=== PATIENT | female | born 1945 | race Caucasian/White ===

== ENCOUNTER 2021-09-25 10:52 | Inpatient (IN) | payer MEDICARE, SELFPAY ==
--- NOTE | ~2021-09-25 | XR_ITS ---
XR chest 2V 09/28/2021 12:56 Indication: Shortness of breath Procedure: 2 view chest Comparison: No prior studies for comparison. Findings: Bibasilar atelectasis. Small pleural effusions. Borderline heart size. Cholecystectomy clip s. No pneumothorax. Impression: 1: Bibasilar atelectasis. 2: Small pleural effusions. Reviewed, dictated and finalized at location [facility]. [place] MANAGER Impression: 1: Bibasilar atelectasis. 2: Small pleural effusions.
--- NOTE | ~2021-09-25 | CT_ITS ---
EXAMINATION: CT abdomen pelvis wo con DATE: 09/25/2021 12:34 INDICATION: Left lower quadrant abdominal pain for 4 days. History of cholecystectomy, hysterectomy a nd bladder surgery. TECHNIQUE: Computed tomography (CT) of the abdomen and pelvis was performed without intravenous contr ast. Automated exposure control and iterative reconstruction technique were employed. Exam dose: 212 .42 mGy-cm total exam DLP. COMPARISON: None. FINDINGS: There is mild discoid atelectasis or scarring at the lung bases, primarily on the left. Cardiomegaly. No pericardial or pleural effusion. Small sliding hiatal hernia. Status post cholecystectomy. No hepatic, splenic, pancreatic, and adrenal or solid renal space-occupy ing mass lesion is evident. Approximately 12 mm probable cyst of lower pole the right kidney. 2.7 mm nonobstructing upper pole ri ght renal calculus. There is left nephromegaly and mild left perinephric stranding and thickening of the anterior and pos terior pararenal fascia. No left urinary tract calculus or hydroureteronephrosis is detected. Conside r left pyelonephritis. There is atherosclerotic calcification of the abdominal aorta but no aneurysm. No intraperitoneal or retroperitoneal or pelvic mass lesion or adenopathy or ascites. Status post hysterectomy. The urinary bladder is nearly completely evacuated, unremarkable. Normal appendix. No bowel obstruction, bowel wall thickening, pneumatosis or intraperitoneal free air is detected. There is severe degenerative disc disease at L4-5. No suspicious osteolytic or osteoblastic lesions are noted. IMPRESSION: Left nephromegaly and mild left perinephric space stranding and prominence of the anteri or and posterior pararenal fascia, suggesting possible pyelonephritis No left urinary tract calculus or hydroureteronephrosis 2.7 mm upper pole nonobstructing right renal calculus and probable lower pole right renal approximate ly 12 mm cyst Status post cholecystectomy Status post hysterectomy Small sliding hiatal hernia Cardiomegaly Reviewed, dictated and finalized at [facility]. Reviewed, dictated and finalized at location [facility]. [employer] DIV[employer] PROJECT MANAGER IMPRESSION: Left nephromegaly and mild left perinephric space stranding and pr ominence of the anterior and posterior pararenal fascia, suggesting possible py elonephritis No left urinary tract calculus or hydroureteronephrosis 2.7 mm upper pole nonobstructing right renal calculus and probable lower pole r ight renal approximately 12 mm cyst Status post cholecystectomy Status post hysterectomy Small sliding hiatal hernia Cardiomegaly
[2021-09-25 11:00] VITALS: BP 140/61; PULSE 97; RESP 20; TEMP 36.5; O2SAT 96
--- NOTE | 2021-09-25 11:18 | ECG_ITS ---
Measurements Intervals [place] Rate: 87 P: 12 DE: 160 QRS: 43 QRSD: 72 T: -20 QT: 339 QTc: 409 Interpretive Statements SINUS RHYTHM VOLTAGE CRITERIA FOR LVH INFERIOR INFARCT, AGE INDETERMINATE BORDERLINE ST-T WAVE ABNORMALITY- ANTEROLATERAL LEADS ABNORMAL ECG Electronically Signed On 09-25-2021 12:31:31 METALWORKING SPECIALIST by Irineo Bettencourt D.O.
[2021-09-25 11:19] LABS: Glucose Point of Care 209 mg/dl (65-105)
--- NOTE | 2021-09-25 11:20 | ED.ABDPAIN ---
HPI - Abdominal Pain General Source: patient and family <Robert Quan MD - Last Filed: 09/25/21 13:13> Mode of arrival: ambulatory <Robert Quan MD - Last Filed: 09/25/21 13:13> History of Present Illness HPI narrative: this is a 76-year-old female that presents with close to 2 week history of not able to eat with weakness off and on abdominal pain currently there is sensation of nausea with no vomiting has been having diarrhea with no fever chills no cough or congestion no shortness of breath no chest pain. The patient has a history of diabetes and hypertension. <Robert Quan MD - Last Filed: 09/25/21 13:13> MD elicited complaint: abdominal pain <Robert Quan MD - Last Filed: 09/25/21 13:13> Onset (ago): week(s) <Robert Quan MD - Last Filed: 09/25/21 13:13> Pain Consistency: intermittent <Robert Quan MD - Last Filed: 09/25/21 13:13> Location: diffuse <Robert Quan MD - Last Filed: 09/25/21 13:13> Severity: mild <Robert Quan MD - Last Filed: 09/25/21 13:13> Quality: cramping <Robert Quan MD - Last Filed: 09/25/21 13:13> Migration to: no migration <Robert Quan MD - Last Filed: 09/25/21 13:13> Relieving factors: nothing <Robert Quan MD - Last Filed: 09/25/21 13:13> Associated symptoms: nausea and diarrhea <Robert Quan MD - Last Filed: 09/25/21 13:13> Related Data Home Medications: Home Medications Medication Instructions Recorded Confirmed ferrous sulfate 325 mg PO DAILY 09/25/21 09/25/21 glimepiride 1 mg PO DAILY 09/25/21 09/25/21 lisinopril 10 mg PO DAILY 09/25/21 09/25/21 simvastatin 40 mg PO DAILY 09/25/21 09/25/21 <Robert Quan MD - Last Filed: 09/25/21 13:13> Allergies/Adverse Reactions: Allergies Allergy/AdvReac Type Severity Reaction Status Date / Time acetaminophen AdvReac Difficulty Verified 09/25/21 12:01 Breathing aspirin AdvReac Difficulty Verified 09/25/21 12:01 Breathing codeine AdvReac Difficulty Verified 09/25/21 12:01 Breathing Corticosteroids AdvReac Swelling Verified 09/25/21 12:01 (Glucocorticoids) of Lip/Tongue/Throat hydrocodone AdvReac Difficulty Verified 09/25/21 12:01 Breathing morphine AdvReac Difficulty Verified 09/25/21 12:01 Swallowing Sulfa (Sulfonamide AdvReac Difficulty Verified 09/25/21 12:01 Antibiotics) Breathing <Robert Quan MD - Last Filed: 09/25/21 13:13> Review of Systems Review of Systems: All systems reviewed & are unremarkable except as noted in HPI and below <Robert Quan MD - Last Filed: 09/25/21 13:13> PMFSH Past Medical History Medical History: Medical History Diabetes mellitus <Robert Quan MD - Last Filed: 09/25/21 13:13> Social History Social History: Social History Smoking packs per day: 0.5 Smoking cigarettes per day: 10.0 Years smoked: 20 Smoking pack-years: 10.00 Smoking status: Light tobacco smoker Tobacco type: cigarettes Second hand tobacco smoke exposure: No Alcohol intake: never Substance use: never Substance use type: does not use Gender identity (if verbalized by the patient): Female Sexual Orientation (if Verbalized by the Patient): Straight or Heterosexual Spiritual care concerns: No <Robert Quan MD - Last Filed: 09/25/21 13:13> Exam Const: General: no acute distress and alert <Robert Quan MD - Last Filed: 09/25/21 13:13> Orientation/consciousness: patient oriented x3 <Robert Quan MD - Last Filed: 09/25/21 13:13> HENMT: Head: normal to inspection <Robert Quan MD - Last Filed: 09/25/21 13:13> Eyes: Conjunctivae: conjunctivae normal <Robert Quan MD - Last Filed: 09/25/21 13:13> Pupils: Equal, round and reactive
[2021-09-25 11:22] VITALS: BP 140/61; PULSE 97; RESP 20; TEMP 36.6; O2SAT 98
[2021-09-25 11:44] LABS: Hematocrit 34.2 % (35.0-42.0); Hemoglobin 11.5 g/dL (11.7-13.8); Mean Corpuscular HGB Conc 33.6 g/dL (32.0-36.0); Mean Corpuscular Hemoglobin 29.6 pg (27.0-31.0); Mean Corpuscular Volume 87.9 fL (78.0-102.0); Mean Platelet Volume 11.2 fl (9.2-11.8); Platelet Count Result 148 K/mm3 (150-420); Red Blood Count 3.89 M/mm3 (4.20-5.40); Red Cell Distribution Width 13.2 % (11.6-14.4); White Blood Count 14.6 K/mm3 (4.8-10.8)
[2021-09-25] MEDS: SODIUM CHLORIDE 0.9% IV 1,000 ML 999 ML IV CONT (11:54)
[2021-09-25] MEDS: PANTOPRAZOLE SODIUM IV 40 MG VIAL IV PUSH (11:55)
[2021-09-25] MEDS: ONDANSETRON INJ 4 MG/2 ML VIAL IV PUSH (11:55)
[2021-09-25 11:57] LABS: Partial Thromboplastin Time 31.7 SEC (23.90-30.70); Prothrombin Time 11.1 Seconds (9.50-12.10)
[2021-09-25 11:59] LABS: Alanine Aminotransferase 17 U/L (14-59); Albumin Level 2.9 g/dL (3.4-5.0); Alkaline Phosphatase 91 U/L (46-116); Anion Gap 17 mmol/L (8-16); Aspartate Amino Transferase 15 U/L (15-37); Bilirubin,Total 0.6 mg/dL (0.00-1.00); Blood Urea Nitrogen 51 mg/dL (7-18); Calcium 9.2 mg/dL (8.5-10.1); Carbon Dioxide 19 mmol/L (21-32); Chloride 90 mmol/L (98-108); Estimated Glomerular Filt Rate 11; Glucose 236 mg/dL (70-99); Osmolality Calculated 283 mOsm/kg (285-295); Sodium 126 mmol/L (136-145); Total Protein 7.8 g/dL (6.4-8.2)
[2021-09-25 12:00] LABS: SARS-CoV-2 Ag Negative (Negative)
[2021-09-25 12:04] LABS: Lactic Acid Reflex 2.6 mmol/L (0.4-2.0)
[2021-09-25 12:05] LABS: Band Neutrophils Percent 4 % (0-6); Basophils Percent Manual 0 % (0-1); Eosinophils Percent Manual 0 % (1-6); Lymphocytes Absolute Manual 0.29 K/mm3 (1.1-4.5); Lymphocytes Percent Manual 2 % (18-44); Metamyelocytes Percent 2 %; Monocytes Absolute Manual 0.43 K/mm3 (0.1-0.90); Monocytes Percent Manual 3 % (3-9); Neutrophils Absolute Manual 13.57 K/mm3 (1.7-7.2); Neutrophils Percent Manual 89 % (46-73); Total Cells Counted 100
[2021-09-25 12:06] LABS: Platelet Estimate Adequate (Adequate)
[2021-09-25 12:11] LABS: Add Urine Microscopic? YES; Appearance Urine Cloudy (Clear); Bilirubin Urine Negative (Negative); Blood Urine 2+ (Negative); Color Urine Light Yellow (Yellow); Glucose Urine UA Negative (Negative); Ketones Urine Negative (Negative); Leukocyte Esterase Ur 3+ (Negative); Nitrate Urine Negative (Negative); Protein Urine 2+ (Negative); Specific Grav Ur 1.025 (1.010-1.020); Urobilinogen Urine 0.2 mg/dL (0.2-1.0); pH Urine 5.5 (5.0-8.0)
[2021-09-25 12:14] LABS: RBC Urine 0-2 /hpf (0-2); WBC Urine 51-75 /hpf (0-3)
[2021-09-25 12:15] LABS: Bacteria Urine 2+ /hpf; Renal Epithelial Cells Urine Few /hpf; Squamous Epithelial Cell Urine Few /hpf (Few)
--- NOTE | 2021-09-25 13:47 | PC.NURSE ---
pt accepted per [facility] hospitalist.
[2021-09-25 13:52] VITALS: BP 131/61; PULSE 74; RESP 20; TEMP 36.9; O2SAT 94
--- NOTE | 2021-09-25 14:37 | PC.NURSE ---
Pt admitted to room 227 from the ER. Dx UTI and Kidney failure. Pt is A/O x3. Walks independently with steady gait. Pt on Consistant carb diet. 18G in RAC.
[2021-09-25 14:39] LABS: Reflex Lactic Acid Yes or No Add Lactic
[2021-09-25 14:48] VITALS: BMI 19.9
[2021-09-25 15:15] VITALS: BP 142/99; PULSE 90; RESP 18; TEMP 36.5; O2SAT 99
[2021-09-25] MEDS: SODIUM CHLORIDE 0.9% IV 1,000 ML 100 ML IV CONT (16:44)
[2021-09-25 16:49] LABS: Glucose Point of Care 213 mg/dl (65-105)
[2021-09-25] MEDS: MELATONIN 3 MG TABLET PO (21:09)
[2021-09-25 21:14] LABS: Glucose Point of Care 225 mg/dl (65-105)
[2021-09-25 23:40] VITALS: BP 129/55; PULSE 85; RESP 18; TEMP 37.7; O2SAT 93
[2021-09-26] MEDS: SODIUM CHLORIDE 0.9% IV 1,000 ML 100 ML IV CONT (02:45)
[2021-09-26 05:20] LABS: Hematocrit 29.2 % (35.0-42.0); Hemoglobin 9.7 g/dL (11.7-13.8); Mean Corpuscular HGB Conc 33.2 g/dL (32.0-36.0); Mean Corpuscular Hemoglobin 29.8 pg (27.0-31.0); Mean Corpuscular Volume 89.6 fL (78.0-102.0); Mean Platelet Volume 10.8 fl (9.2-11.8); Platelet Count Result 104 K/mm3 (150-420); Red Blood Count 3.26 M/mm3 (4.20-5.40); Red Cell Distribution Width 13.5 % (11.6-14.4); White Blood Count 10.6 K/mm3 (4.8-10.8)
[2021-09-26 05:29] LABS: Anion Gap 11 mmol/L (8-16); Blood Urea Nitrogen 51 mg/dL (7-18); Calcium 8.2 mg/dL (8.5-10.1); Carbon Dioxide 21 mmol/L (21-32); Chloride 99 mmol/L (98-108); Estimated Glomerular Filt Rate 15; Glucose 173 mg/dL (70-99); Osmolality Calculated 289 mOsm/kg (285-295); Potassium 3.9 mmol/L (3.5-5.1); Sodium 131 mmol/L (136-145)
[2021-09-26 05:36] LABS: Band Neutrophils Percent 0 % (0-6); Basophils Percent Manual 0 % (0-1); Eosinophils Percent Manual 0 % (1-6); Lymphocytes Absolute Manual 0.63 K/mm3 (1.1-4.5); Lymphocytes Percent Manual 6 % (18-44); Monocytes Absolute Manual 0.84 K/mm3 (0.1-0.90); Monocytes Percent Manual 8 % (3-9); Neutrophils Absolute Manual 9.11 K/mm3 (1.7-7.2); Neutrophils Percent Manual 86 % (46-73); Platelet Estimate Adequate (Adequate)
--- NOTE | 2021-09-26 07:40 | PM.IMHP ---
H&P: HPI History of Present Illness Date/Time: 09/26/21 07:40This is a 76-year-old female the presents to the emergency room complaining of nausea vomiting and diarrhea for the past few weeks. Patient states that she just has been feeling weaker not able to hold anything down. Patient informs me she has had a history of a hysterectomy, cholecystectomy, GERD, and a hernia repair. On admission White Blood Count 14.8 hemoglobin 11.5 hematocrit was 34.2 platelets at 148, patient sodium was 126 BUN 51 creatinine 3.81 Patient states that she has been diabetic for a while but has never had any kidney disease. Patient states that over the past week she has not been able to urinate as much. At this time patient still having some nausea with difficulty urinating. According to Ms. Lazo she has a lot of allergies and her blood pressure medicine has been making her cough and have a dry throat. Patient informs me she has not been able to tell her doctor yet. Ms. Elizabeth informed me she has not been to her primary care provider in almost a year she just called to have her medication refilled. Patient is a very poor historian as her regulation of her memory of events or illnesses are scattered or she does not remember. Patient is wanting to follow-up when she is discharged with Dr. Becerra as she is staying with her son and will be in this area. Chief Complaint: Nausea vomiting and diarrhea Review of Systems Review of Systems: Nausea, vomiting, diarrhea, inability to urinate All systems reviewed & are unremarkable except as noted in HPI and below PMFSH Past Medical History Medical History Diabetes mellitus Social History Social History Smoking packs per day: 0.5 Smoking cigarettes per day: 10.0 Years smoked: 20 Smoking pack-years: 10.00 Smoking status: Light tobacco smoker Tobacco type: cigarettes Second hand tobacco smoke exposure: No Alcohol intake: never Substance use: never Substance use type: does not use Gender identity (if verbalized by the patient): Female Sexual Orientation (if Verbalized by the Patient): Straight or Heterosexual Spiritual care concerns: No Meds Home Medications and Allergies Home Medications Medication Instructions Recorded Confirmed Type ferrous sulfate 325 mg PO DAILY 09/25/21 09/25/21 History glimepiride 1 mg PO DAILY 09/25/21 09/25/21 History lisinopril 10 mg PO DAILY 09/25/21 09/25/21 History simvastatin 40 mg PO DAILY 09/25/21 09/25/21 History Allergies Allergy/AdvReac Type Severity Reaction Status Date / Time acetaminophen AdvReac Difficulty Verified 09/25/21 12:01 Breathing aspirin AdvReac Difficulty Verified 09/25/21 12:01 Breathing codeine AdvReac Difficulty Verified 09/25/21 12:01 Breathing Corticosteroids AdvReac Swelling Verified 09/25/21 12:01 (Glucocorticoids) of Lip/Tongue/Throat hydrocodone AdvReac Difficulty Verified 09/25/21 12:01 Breathing morphine AdvReac Difficulty Verified 09/25/21 12:01 Swallowing Sulfa (Sulfonamide AdvReac Difficulty Verified 09/25/21 12:01 Antibiotics) Breathing Vital Signs Vital Signs - 24 hr 09/25/21 11:00 09/25/21 11:22 09/25/21 13:52 Temperature 97.7 F 97.8 F 98.4 F Pulse Rate 97 97 74 Respiratory Rate 20 20 20 Blood Pressure 140/61 140/61 131/61 Pulse Oximetry 96 98 94 09/25/21 15:15 09/25/21 23:40 Temperature 97.7 F 99.9 F H Pulse Rate 90 85 Respiratory Rate 18 18 Blood Pressure 142/99 H 129/55 L Pulse Oximetry 99 93 Exam Narrative: GENERAL:Well-appearing, Frail and in no acute distress. HEAD:Normocephalic, EYES: PERRLA ENT: Nares clear, no rhinorrhea. Mucous membranes moist. CHEST: Clear to auscultation. No respiratory distress. HEART: Regular rate and rhythm. Normal peripheral pulses. ABDOMEN: Soft, nontender, nond
[2021-09-26 08:00] VITALS: BP 119/47; PULSE 94; RESP 16; TEMP 36.7; O2SAT 94
[2021-09-26 08:04] LABS: Glucose Point of Care 148 mg/dl (65-105)
[2021-09-26 08:26] LABS: Lactic Acid Reflex 0.8 mmol/L (0.4-2.0)
[2021-09-26] MEDS: PANTOPRAZOLE SODIUM IV 40 MG VIAL IV PUSH (09:00)
[2021-09-26] MEDS: ENOXAPARIN 30 MG/0.3 ML SYRINGE SUB-Q (09:00)
[2021-09-26] MEDS: amLODIPine BESYLATE 5 MG TABLET 10 MG PO (09:00)
[2021-09-26 11:53] LABS: Glucose Point of Care 140 mg/dl (65-105)
[2021-09-26] MEDS: SODIUM CHLORIDE 0.9% IV 1,000 ML 75 ML IV CONT (12:05)
--- NOTE | 2021-09-26 13:50 | PC.NURSE ---
Patient voided 200 ml in commode. Bladder scan performed post voided, 27ml noted.
[2021-09-26 16:40] VITALS: BP 132/58; PULSE 75; RESP 18; TEMP 37.1; O2SAT 95
[2021-09-26] MEDS: MELATONIN 3 MG TABLET PO (21:16)
[2021-09-26 21:20] LABS: Glucose Point of Care 172 mg/dl (65-105)
[2021-09-27] VITALS: BP 125/52; PULSE 72; RESP 16; TEMP 36.8; O2SAT 96
[2021-09-27] MEDS: SODIUM CHLORIDE 0.9% IV 1,000 ML 75 ML IV CONT ×2 (00:14→14:58)
[2021-09-27 05:39] LABS: Hematocrit 26.5 % (35.0-42.0); Mean Corpuscular Hemoglobin 30.2 pg (27.0-31.0); Mean Corpuscular Volume 88.9 fL (78.0-102.0); Mean Platelet Volume 10.8 fl (9.2-11.8); Platelet Count Result 101 K/mm3 (150-420); Red Blood Count 2.98 M/mm3 (4.20-5.40); Red Cell Distribution Width 13.9 % (11.6-14.4)
[2021-09-27 05:42] LABS: Anion Gap 13 mmol/L (8-16); Blood Urea Nitrogen 50 mg/dL (7-18); Carbon Dioxide 17 mmol/L (21-32); Chloride 100 mmol/L (98-108); Estimated Glomerular Filt Rate 19; Glucose 141 mg/dL (70-99); Osmolality Calculated 285 mOsm/kg (285-295); Potassium 3.6 mmol/L (3.5-5.1); Sodium 130 mmol/L (136-145)
[2021-09-27 05:44] LABS: Hemoglobin A1C 8.1 % (<5.7)
[2021-09-27 07:28] LABS: Glucose Point of Care 132 mg/dl (65-105)
[2021-09-27 08:00] VITALS: BP 148/60; PULSE 65; RESP 16; TEMP 36.8; O2SAT 93
[2021-09-27] MEDS: SIMVASTATIN 10 MG TABLET 40 MG PO (08:04)
[2021-09-27] MEDS: ENOXAPARIN 30 MG/0.3 ML SYRINGE SUB-Q (08:06)
[2021-09-27] MEDS: PANTOPRAZOLE SODIUM IV 40 MG VIAL IV PUSH (08:06)
[2021-09-27] MEDS: amLODIPine BESYLATE 5 MG TABLET 10 MG PO (08:06)
[2021-09-27] MEDS: DIPHENOXYLATE/ATROPINE (*CRX) 2.5 MG TABLET 1 TABLET PO (10:36)
--- NOTE | 2021-09-27 10:36 | PM.IMPN ---
Progress Note: A&P Assessment and Plan (1) Dehydration: Code(s): E86.0 - Dehydration Status: Acute Assessment and Plan: -- IVF -- Monitor Intake and output -- Monitor labs --- Improved. (2) Acute pyelonephritis: Code(s): N10 - Acute pyelonephritis Status: Acute Assessment and Plan: -- IVf changed to 75 ml/hr -- IV Antibiotics Rocephin -- Awaiting Cultures -- Monitor Intake and output -- Plenty of fluids avoid caffeine (3) Acute kidney failure: Qualifiers: Acute renal failure type: unspecified Qualified Code(s): N17.9 - Acute kidney failure, unspecified Code(s): N17.9 - Acute kidney failure, unspecified Status: Acute Assessment and Plan: --Creatinine3.39...2.99...2.51 --IV fluids changed to 75 mls --Monitor intake and output improving -- bladder scan / Virk catheter --Avoid any nephrotoxic drugs -- Diarrhea has continued started on Lomotil today -- More than likely Pre renal at this time (4) Diabetes mellitus: Qualifiers: Diabetes mellitus type: type 2 Diabetes mellitus retirement insulin use: unspecified intermediate accountant insulin use status Diabetes mellitus complication status: with other specified complication Qualified Code(s): E11.69 - Type 2 diabetes mellitus with other specified complication Code(s): E11.9 - Type 2 diabetes mellitus without complications Status: Acute Assessment and Plan: --Monitor blood sugars --Hold oral antiglycemic's --Sliding scale insulin --Monitor hemoglobin A1c 8.1 --Carbohydrate diet for diabete --TSH -- BNP (5) Hypertension: Qualifiers: Hypertension type: unspecified Qualified Code(s): I10 - Essential (primary) hypertension Code(s): I10 - Essential (primary) hypertension Status: Acute Assessment and Plan: --Monitor blood pressure every shift --Take home blood pressure medication --- Changed to Norvasc discontinued the Lisinopril Subjective Date/time seen: 09/27/21 10:36 Ms. Cordero continues to improve although she is in renal failure. Yesterday patient's lisinopril was discontinued as could be causing some of her renal issues patient also was having coughing since she started the medication she did not inform anyone. Patient is up in recliner chair states she is feeling a lot better decreased pain or palpitations to her kidneys. Patient is able to eat and drink although she still having diarrhea we will start some Lomotil today culture of stool still has not been obtained. Patient has remained afebrile no nausea no vomiting we will continue IV fluids at a low dose as well as we will obtain a kidney ultrasound if unable this weekend we may obtain 1 during outpatient visit. Review of Systems Review of Systems: Diarrhea All systems reviewed & are unremarkable except as noted in HPI and below Exam Narrative: GENERAL:Well-appearing, Frail and in no acute distress. HEAD:Normocephalic, EYES: PERRLA ENT: Nares clear, no rhinorrhea. Mucous membranes moist. CHEST: Clear to auscultation. No respiratory distress. HEART: Regular rate and rhythm. Normal peripheral pulses. ABDOMEN: Soft, nontender, nondistended, normal active bowel sounds. Flank back pain right side decreased oaub EXTREMITIES: decreased range of motion. No edema. SKIN: Warm, dry, no rash. NEURO: No focal deficits. Alert and oriented x3. Objective Data Vital Signs Vital Signs: Vital Signs - 24 hr 09/26/21 16:40 09/27/21 00:00 09/27/21 08:00 Temperature 98.8 F 98.2 F 98.2 F Pulse Rate 75 72 65 Respiratory Rate 18 16 16 Blood Pressure 132/58 L 125/52 L 148/60 H Pulse Oximetry 95 96 93 Intake/Output Intake/Output: Intake & Output 09/24/21 09/25/21 09/26/21 09/27/21 23:59 23:59 23:59 23:59 Intake Total 1175 3390.000 911.25 Output Total 25 1500 400 Balance 1150 1890.000 511.25 Meds/Results Medications: Active Medications Generic Name Dose Ro
[2021-09-27 10:49] LABS: NT Pro B Type Natriuretic Pept 8141 pg/mL (0-450)
[2021-09-27 10:57] LABS: Thyroid Stimulating Hormone Reflex 1.04 u/IU/mL (0.36-3.74)
[2021-09-27 11:37] LABS: Glucose Point of Care 205 mg/dl (65-105)
[2021-09-27] MEDS: FUROSEMIDE INJ 20 MG/2 ML VIAL IV PUSH (12:56)
[2021-09-27 15:49] VITALS: BP 129/55; PULSE 73; RESP 18; TEMP 37.3; O2SAT 97
[2021-09-27 16:56] LABS: Glucose Point of Care 192 mg/dl (65-105)
[2021-09-27 20:45] LABS: Glucose Point of Care 180 mg/dl (65-105)
[2021-09-28] VITALS: BP 137/57; PULSE 75; RESP 14; TEMP 37.2; O2SAT 99
[2021-09-28] MEDS: SODIUM CHLORIDE 0.9% IV 1,000 ML 75 ML IV CONT (03:27)
[2021-09-28 07:35] LABS: Glucose Point of Care 173 mg/dl (65-105)
[2021-09-28 08:00] VITALS: BP 137/53; PULSE 82; RESP 18; TEMP 36.7; O2SAT 95
[2021-09-28] MEDS: PANTOPRAZOLE SODIUM IV 40 MG VIAL IV PUSH (08:12)
[2021-09-28] MEDS: amLODIPine BESYLATE 5 MG TABLET 10 MG PO (08:14)
[2021-09-28] MEDS: SIMVASTATIN 10 MG TABLET 40 MG PO (08:14)
[2021-09-28 09:54] LABS: Hematocrit 28.6 % (35.0-42.0); Hemoglobin 9.6 g/dL (11.7-13.8); Mean Corpuscular HGB Conc 33.6 g/dL (32.0-36.0); Mean Corpuscular Hemoglobin 29.9 pg (27.0-31.0); Mean Corpuscular Volume 89.1 fL (78.0-102.0); Mean Platelet Volume 11.1 fl (9.2-11.8); Platelet Count Result 150 K/mm3 (150-420); Red Blood Count 3.21 M/mm3 (4.20-5.40); Red Cell Distribution Width 14.2 % (11.6-14.4); White Blood Count 12.8 K/mm3 (4.8-10.8)
[2021-09-28 10:05] LABS: Anion Gap 16 mmol/L (8-16); Blood Urea Nitrogen 48 mg/dL (7-18); Calcium 7.8 mg/dL (8.5-10.1); Carbon Dioxide 15 mmol/L (21-32); Chloride 96 mmol/L (98-108); Estimated Glomerular Filt Rate 19; Glucose 213 mg/dL (70-99); Osmolality Calculated 282 mOsm/kg (285-295); Potassium 3.1 mmol/L (3.5-5.1); Sodium 127 mmol/L (136-145)
[2021-09-28 11:34] LABS: Glucose Point of Care 186 mg/dl (65-105)
--- NOTE | 2021-09-28 11:51 | PM.IMPN ---
Progress Note: A&P Assessment and Plan (1) Dehydration: Code(s): E86.0 - Dehydration Status: Acute Assessment and Plan: -- IVF -- Monitor Intake and output -- Monitor labs --- Improved. (2) Acute pyelonephritis: Code(s): N10 - Acute pyelonephritis Status: Acute Assessment and Plan: -- IVf changed to 75 ml/hr -- IV Antibiotics Rocephin -- Awaiting Cultures -- Monitor Intake and output -- Plenty of fluids avoid caffeine (3) Acute kidney failure: Qualifiers: Acute renal failure type: unspecified Qualified Code(s): N17.9 - Acute kidney failure, unspecified Code(s): N17.9 - Acute kidney failure, unspecified Status: Acute Assessment and Plan: --Creatinine3.39...2.99...2.51 --IV fluids changed to 75 mls --Monitor intake and output improving -- bladder scan / Virk catheter --Avoid any nephrotoxic drugs -- Diarrhea has continued started on Lomotil today -- More than likely Pre renal at this time (4) Diabetes mellitus: Qualifiers: Diabetes mellitus type: type 2 Diabetes mellitus shelter insulin use: unspecified shelter insulin use status Diabetes mellitus complication status: with other specified complication Qualified Code(s): E11.69 - Type 2 diabetes mellitus with other specified complication Code(s): E11.9 - Type 2 diabetes mellitus without complications Status: Acute Assessment and Plan: --Monitor blood sugars --Hold oral antiglycemic's --Sliding scale insulin --Monitor hemoglobin A1c 8.1 --Carbohydrate diet for diabete --TSH -- [id number] (5) Hypertension: Qualifiers: Hypertension type: unspecified Qualified Code(s): I10 - Essential (primary) hypertension Code(s): I10 - Essential (primary) hypertension Status: Acute Assessment and Plan: --Monitor blood pressure every shift --Take home blood pressure medication --- Changed to Norvasc discontinued the Lisinopril (6) Acute hypokalemia: Code(s): E87.6 - Hypokalemia Status: Acute Assessment and Plan: 3.1 Patient to be placed on oral potassium BID Cardiac Telemetery monitor for s/s of hypokalemia Monitor labs daily (7) Hyponatremia: Code(s): E87.1 - Hypo-osmolality and hyponatremia Status: Acute Assessment and Plan: 127 Discontinue IVF Monitor intake and output Daily Weights monitor daily labs (8) Shortness of breath: Code(s): R06.02 - Shortness of breath Status: Acute Assessment and Plan: Chest x-ray stat Albuterol inhaler first dose now then. 4 times daily I-S every 2 hours while awake Monitor for any signs or symptoms of shortness of breath O2 as needed Check pulse oximetry Subjective Date/time seen: 09/28/21 11:51 This is a 76-year-old female kidney function continues to slowly improve currently creatinine is 2.44 GFR is 19. IV fluids have been discontinued patient is hyponatremic at 127 patient is hypokalemic at 3.1 today I am going to add oral potassium twice daily. Patient also received albuterol inhaler due to she complains of shortness of breath although lungs are clear at this time. Patient is feeling better eating and drinking stating that she is urinating a lot better and her back does not hurt today. Patient very anxious to go home informed her we would discuss discharge possibly tomorrow. Review of Systems Review of Systems: Urinary Retention All systems reviewed & are unremarkable except as noted in HPI and below Exam Narrative: GENERAL:Well-appearing, Frail and in no acute distress. HEAD:Normocephalic EYES: PERRLA ENT: Nares clear, no rhinorrhea. Mucous membranes moist. CHEST: Clear to auscultation. No respiratory distress. HEART: Regular rate and rhythm. Normal peripheral pulses. ABDOMEN: Soft, nontender, nondistended, normal active bowel sounds. EXTREMITIES: decreased range of motion. No yair
[2021-09-28] MEDS: ALBUTEROL SULFATE (*SP) INHALER 2 PUFF INHALATION (12:31)
[2021-09-28 15:16] VITALS: BP 180/63; PULSE 81; RESP 16; TEMP 37.1; O2SAT 94
[2021-09-28 15:29] VITALS: BP 137/51
[2021-09-28] MEDS: POTASSIUM CHLORIDE 20 MEQ TABLET PO (16:57)
[2021-09-28 20:44] LABS: Glucose Point of Care 203 mg/dl (65-105)
[2021-09-28 20:47] LABS: Glucose Point of Care 185 mg/dl (65-105)
[2021-09-29] VITALS: BP 136/82; PULSE 92; RESP 20; TEMP 35.8; O2SAT 98
[2021-09-29 05:15] LABS: Mean Corpuscular HGB Conc 34.6 g/dL (32.0-36.0); Mean Corpuscular Hemoglobin 30.4 pg (27.0-31.0); Mean Corpuscular Volume 87.8 fL (78.0-102.0); Mean Platelet Volume 10.9 fl (9.2-11.8); Platelet Count Result 144 K/mm3 (150-420); Red Blood Count 2.96 M/mm3 (4.20-5.40); Red Cell Distribution Width 14.1 % (11.6-14.4); White Blood Count 12.7 K/mm3 (4.8-10.8)
[2021-09-29 05:27] LABS: Anion Gap 14 mmol/L (8-16); Blood Urea Nitrogen 44 mg/dL (7-18); Calcium 7.7 mg/dL (8.5-10.1); Carbon Dioxide 16 mmol/L (21-32); Chloride 101 mmol/L (98-108); Estimated Glomerular Filt Rate 21; Glucose 164 mg/dL (70-99); Osmolality Calculated 287 mOsm/kg (285-295); Potassium 3.8 mmol/L (3.5-5.1); Sodium 131 mmol/L (136-145)
[2021-09-29 07:56] LABS: Glucose Point of Care 145 mg/dl (65-105)
[2021-09-29 08:00] VITALS: BP 141/58; PULSE 82; RESP 20; TEMP 37.1; O2SAT 96
--- NOTE | 2021-09-29 08:34 | PC.NURSE ---
Attempted to make f/u appointment for patient with Dr Dorado, patient states has new patient paperwork, not returned at this time, advised that they cannot make appointment for patient until Dr Dorado reviews the returned packet and accepts her as a patient, hospitalist given information
[2021-09-29] MEDS: POTASSIUM CHLORIDE 20 MEQ TABLET PO (08:39)
[2021-09-29] MEDS: SIMVASTATIN 10 MG TABLET 40 MG PO (08:39)
[2021-09-29] MEDS: PANTOPRAZOLE SODIUM IV 40 MG VIAL IV PUSH (08:39)
[2021-09-29] MEDS: amLODIPine BESYLATE 5 MG TABLET 10 MG PO (08:39)
--- NOTE | 2021-09-29 10:30 | PC.NURSE ---
Patient dressed self and gathered belongings. Discharge instructions reviewed with patient and family. Patient taken off floor per wheelchair, assisted into private vehicle by son.
--- NOTE | 2021-09-29 10:31 | PM.DS ---
DS: Admitting Diagnosis Discharge Date 09/29/2021 Admitting Diagnosis Acute kidney failure, pyelonephritis, nausea vomiting and diarrhea DS: Discharge Diagnosis Discharge Diagnosis (1) Hypertension: Qualifiers: Hypertension type: unspecified Qualified Code(s): I10 - Essential (primary) hypertension Code(s): I10 - Essential (primary) hypertension Status: Acute Assessment and Plan: Patient sent home on oral Norvasc (lisinopril discontinued) (2) Acute pyelonephritis: Code(s): N10 - Acute pyelonephritis Status: Acute Assessment and Plan: Patient is currently urinating adequate amount of urine home antibiotic will be Levaquin 250 mg p.o. every 48 hours patient to have labs redrawn by primary care doctor (3) Acute kidney failure: Qualifiers: Acute renal failure type: unspecified Qualified Code(s): N17.9 - Acute kidney failure, unspecified Code(s): N17.9 - Acute kidney failure, unspecified Status: Acute Assessment and Plan: Patient's creatinine continuing to improve very slowly urinated adequate amount of urine avoidance of all nephrotoxic medications clear instructions given and explained to patient regarding follow-up Creatinine currently 2.3 (4) Diabetes mellitus: Qualifiers: Diabetes mellitus type: type 2 Diabetes mellitus group home insulin use: unspecified group home insulin use status Diabetes mellitus complication status: with other specified complication Qualified Code(s): E11.69 - Type 2 diabetes mellitus with other specified complication Code(s): E11.9 - Type 2 diabetes mellitus without complications Status: Acute Assessment and Plan: Patient to continue to monitor her blood sugars as well as should go back on her oral antiglycemic's (5) Acute hypokalemia: Code(s): E87.6 - Hypokalemia Status: Acute Assessment and Plan: 3.1 Patient to be placed on oral potassium BID Cardiac Telemetery monitor for s/s of hypokalemia Monitor labs daily Patient's potassium currently 3.8 she is to follow-up with primary care provider (6) Shortness of breath: Code(s): R06.02 - Shortness of breath Status: Acute Assessment and Plan: Chest x-ray no pneumonia noted Albuterol inhaler first dose now then. 4 times daily I-S every 2 hours while awake Monitor for any signs or symptoms of shortness of breath O2 as needed Check pulse oximetry remained stable Patient will go home on oral Levaquin every 48 hours shortness of breath resolved DS: Summary Hospital Course Reason for hospitalization: Acute pyelonephritis, dehydration, acute kidney injury nausea vomiting and diarrhea Hospital Course: Mrs Lazo intial labs on admission white blood count 14.6, hemoglobin 11.5, platelets 148, sodium 126, BUN 51, creatinine 3.81. Urine was positive for leukois extremities 3+ mucus CARA cloudy urine. Patient was initially admitted and started with some IV fluids, IV Rocephin stopped oral antiglycemic's and was placed on a sliding scale. Patient's lisinopril was discontinued as well as she received some IV Lasix. Patient was on strict intake and output and was put on a diabetic diet. Patient's kidney function has continued to slowly improved and urine is now clear currently urinate and over 2000 mL in 24-hour with no further nausea vomiting and/or diarrhea noted patient is eating and drinking without any difficulties has been up to the shower able to ambulate she will need to follow-up to have her kidney functions continually followed up on as she may need to be evaluated by a urologist or manager payroll if deemed necessary by her primary care provider. Patient should have labs drawn in approximately 1 week discussion had with patient's family patient's labs currently WBC is 12.7, hemoglobin 9.0, [place] 26, platelets 144, BUN is 44, creatinine is 2.30, sodium is 131, potassium is 3.8. Patient states that
--- NOTE | 2021-10-01 11:39 | PC.NURSE ---
Unable to contact for discharge call back.
--- NOTE | 2021-10-01 11:45 | PC.NURSE ---
Pt returned discharge call back. Pt states she received and understood her discharge instructions. Pt also states everything was fine .
== END 2021-09-29 10:30 | disposition home or self-care (01) | DRG 690 ==
LOC: CHSED 13:12 → CHS2ND 14:02
PROVIDERS: Nurse Practitioner Family; Admitting Provider Internal Medicine; Emergency Provider Emergency Medicine; PCP Internal Medicine; Visit Provider Internal Medicine
DX: N10 Acute pyelonephritis (principal); E87.1 Hypo-osmolality and hyponatremia; N17.9 Acute kidney failure, unspecified; E86.0 Dehydration; Z72.0 Tobacco use; Z20.822 Contact with and (suspected) exposure to COVID-19; E11.9 Type 2 diabetes mellitus without complications; E87.6 Hypokalemia; I10 Essential (primary) hypertension; K21.9 Gastro-esophageal reflux disease without esophagitis; R19.7 Diarrhea, unspecified; F17.210 Nicotine dependence, cigarettes, uncomplicated; Z90.49 Acquired absence of other specified parts of digestive tract; Z79.84 Long term (current) use of oral hypoglycemic drugs
CPT/HCPCS: 36415; 71046; 74176; 80048; 80053; 81001; 82948; 83036; 83605; 83880; 84443; 85025; 85027; 85610; 85730; 87040; 87426; 93005; 96361; 96365; 96375; 99285; A9270; C9113; C9803; J0696; J1650; J1940; J2405; J7030

== ENCOUNTER 2021-11-04 12:34 | Outpatient (CLI) | payer MEDICARE, SELFPAY ==
--- NOTE | ~2021-11-04 | US_ITS ---
EXAMINATION: US carotid duplex BI DATE: 11/04/2021 12:56 INDICATION: Abnormal carotid exam. TECHNIQUE: Grayscale, color Doppler, and pulsed Doppler images of the cervical carotid arteries were obtained. The degree of vessel stenosis is placed in one of the following categories: normal, <50%, 5 0-69%, >=70% but less than near-occlusion, near-occlusion, or total occlusion. Note that percent sten osis relative to normal distal artery lumen diameter is indirectly measured from velocity measurement s as described by Butch, et al. Radiology 2003; 229:340-346. COMPARISON: None. FINDINGS: RIGHT: The right common carotid artery (CCA) peak systolic velocity (PSV) is 85 cm/s. The right internal car otid artery (ICA) PSV is 78 cm/s. The right ICA end-diastolic velocity (EDV) is 19 cm/s. The right IC A/CCA PSV ratio is 0.9. Grayscale and color Doppler images yield an estimate of <50% diameter reducti on from plaque in the ICA. There is antegrade flow in the right vertebral artery. LEFT: The left CCA PSV is 87 cm/s. The left ICA PSV is 90 cm/s. The left ICA EDV is 19 cm/s. The left ICA/C CA PSV ratio is 1.0. Grayscale and color Doppler images yield an estimate of <50% diameter reduction from plaque in the ICA. There is antegrade flow in the left vertebral artery. IMPRESSION: 1. <50% stenosis in the right internal carotid artery. 2. <50% stenosis in the left internal carotid artery. Reviewed, dictated and finalized at location A.
== END 2021-11-04 12:35 | disposition home or self-care (01) ==
LOC: CHSIMG 12:35
PROVIDERS: PCP Internal Medicine; Visit Provider Nurse Practitioner Family
DX: R93.1 Abnormal findings on diagnostic imaging of heart and coronary circulation (principal); R09.89 Other specified symptoms and signs involving the circulatory and respiratory systems; I10 Essential (primary) hypertension; R55 Syncope and collapse; I25.10 Atherosclerotic heart disease of native coronary artery without angina pectoris; R42 Dizziness and giddiness
CPT/HCPCS: 93880

== ENCOUNTER 2021-12-25 13:31 | Outpatient (CLI) | payer MEDICARE, SELFPAY ==
--- NOTE | ~2021-12-25 | US_ITS ---
US renal BI 12/25/2021 14:05 Procedure: Realtime transabdominal ultrasound of the kidneys and bladder. Indication: Chronic kidney disease stage III a Comparison: CT dated 09/25/2021 Findings: Renal echotexture is normal bilaterally without hydronephrosis, contour deforming mass or r enal calculus. There are right renal cysts, largest measuring 1.3 cm. The right kidney measures 7.6 c m and left kidney measures 8.5 cm. Bladder within normal limits. Impression: 1: Right renal cysts, largest measuring 1.3 cm. Reviewed, dictated and finalized at location B. Impression: 1: Right renal cysts, largest measuring 1.3 cm.
== END 2021-12-25 13:32 | disposition home or self-care (01) ==
LOC: CHSIMG 13:32
PROVIDERS: PCP Internal Medicine; Visit Provider Internal Medicine Nephrology
DX: N17.8 Other acute kidney failure (principal); N18.31 Chronic kidney disease, stage 3a
CPT/HCPCS: 76775

== ENCOUNTER 2023-02-17 09:05 | Outpatient (CLI) | payer MEDICARE, SELFPAY ==
--- NOTE | ~2023-02-17 | MM_ITS ---
EXAMINATION: MM screening thuy BI w verna HISTORY: Screening mammogram TECHNIQUE: Craniocaudal and mediolateral oblique 3-D tomosynthesis images were obtained and synthetic 2-D images were generated. CAD analysis was submitted and interpreted. COMPARISON: No prior mammogram is available for comparison at this institution. BREAST PARENCHYMAL COMPOSITION: There are scattered areas of fibroglandular density. FINDINGS: There is no evidence of suspicious mass, calcification, or architectural distortion to sugg est malignancy in either breast. There has been no suspicious interval change. IMPRESSION: 1. No mammographic evidence of malignancy. 2. Recommend routine screening mammography in one year. BI-RADS Category 1: Negative Reviewed, dictated and finalized at location A.
--- NOTE | ~2023-02-17 | DEXA_ITS ---
Bone Density Report Name: ADRIAN VERA Age: 77 Sex: Female Ethnicity: White Date of : 1945 Indication: postmenopausal; screening for osteoporosis; height loss; hysterectomy; Referring Provider: Eugene Dorado Study: Bone densitometry was performed. Exam Date: February 17, 2023 Accession number: [id number] Bone Density: Region BMD T-score Z-score Classification AP Spine(L1-L4) 0.671 -3.4 -0.8 Osteoporosis Femoral Neck (Left) 0.544 -2.7 -0.5 Osteoporosis Total Hip (Left) 0.674 -2.2 -0.2 Osteopenia Femoral Neck (Right) 0.562 -2.6 -0.4 Osteoporosis Total Hip (Right) 0.703 -2.0 0.0 Osteopenia Femoral Neck Mean 0.553 -2.7 -0.4 Osteoporosis Total Hip Mean 0.688 -2.1 -0.1 Osteopenia World Health Organization criteria for BMD impression classify patients as: Normal (T-score at or above -1.0), Osteopenia (T-score between -1.0 and -2.5), or Osteoporosis (T-score at or below -2.5). 10-year Fracture Risk: FRAX not reported because: Some T-score for Spine Total or Hip Total or Femoral Neck at or below -2.5 Clinical Information Provided by Patient: Has the following medical conditions: Hysterectomy Patient maximum height was 57 Menopause Age: 49 No regular weight bearing exercise Onset of menses at age 11 Number of children 3 Impression: The patient has osteoporosis, based on the Total Spine T-score. Discussion: INCREASED RISK OF FRACTURE. BONE DENSITY IS UNDESIRABLY LOW AT ONE OR MORE SKELETAL SITES, CONSISTENT WITH POSTMENOPAUSAL OSTEOPOROSIS. This patient's lowest T-score meets the World Health Organization's (WHO) criteria for osteoporosis at one or more sites (T-score -2.5 or below). In untreated patients, the risk of osteoporotic fracture increases approximately two-fold for each 1.0 SD decrease in T-score. Low bone density is not the only risk factor for fracture; also consider factors such as patient's age, frailty or poor health, risk of falling, risk of injury, previous osteoporotic fracture, family history of osteoporosis, cigarette smoking, low body weight, etc. Not everyone with low bone mineral density has osteoporosis; osteomalacia and other metabolic bone disorders should also be considered. Patients who have osteoporosis should be evaluated for specific diseases and conditions (secondary causes) that may cause or contribute to bone loss. The [place] [employer] Endocrinologists (AACE) and National Osteoporosis Foundation (NOF) recommend pharmacologic intervention for all postmenopausal women whose T-score is in this range. The patient should follow a healthful lifestyle (good nutrition with adequate calcium and vitamin D, and appropriate weight-bearing exercise). Follow-Up: Consider a repeat BMD and Vertebral Fracture Assessment (VFA) exam in 2 years or
== END 2023-02-17 09:06 | disposition home or self-care (01) ==
LOC: CHSIMG 09:06
PROVIDERS: PCP Internal Medicine; Visit Provider Internal Medicine
DX: Z12.31 Encounter for screening mammogram for malignant neoplasm of breast (principal); Z78.0 Asymptomatic menopausal state; M85.89 Other specified disorders of bone density and structure, multiple sites; M81.0 Age-related osteoporosis without current pathological fracture
CPT/HCPCS: 77063; 77067; 77080

== ENCOUNTER 2023-12-28 12:02 | Outpatient (CLI) | payer MEDICARE, SELFPAY ==
--- NOTE | ~2023-12-28 | XR_ITS ---
XR lumbar spine 2-3V DATE: 12/28/2023 12:49 INDICATION: Left leg numbness, pain TECHNIQUE: AP, lateral, cone-down lateral lumbosacral views COMPARISON: None FINDINGS: There is osteopenia. There is minimal thoracolumbar levoscoliosis. There is mild degenerative spurring at L3-4 and L4-5. The interspaces appear relatively well preserve d. Severe degenerative disc disease at L4-5. L5-S1 interspace is well preserved. The included lower thoracic and lumbar pedicles are intact. No fracture or bone destruction is detect ed. No spondylolisthesis. The sacroiliac joints are intact. Abdominal aortic and iliac arterial calcifications; no apparent abdominal aortic aneurysm. Surgical clips, right upper quadrant, consistent with cholecystectomy. IMPRESSION: Osteopenia Minimal thoracolumbar levoscoliosis Severe degenerative disc disease at L4-5 Reviewed, dictated and finalized at location B.
--- NOTE | ~2023-12-28 | XR_ITS ---
AP and lateral views of the left hip Clinical history: Pain Findings: No acute fracture or dislocation is seen. Osseous alignment is anatomic. Left hip joint is preserved. Soft tissues are unremarkable. Impression: No significant abnormality is seen. Reviewed, dictated and finalized at location M. Impression: No significant abnormality is seen.
== END 2023-12-28 12:03 | disposition home or self-care (01) ==
LOC: CHSIMG 12:05
PROVIDERS: PCP Internal Medicine; Visit Provider Internal Medicine
DX: R20.0 Anesthesia of skin (principal); M79.605 Pain in left leg; M85.89 Other specified disorders of bone density and structure, multiple sites; M41.86 Other forms of scoliosis, lumbar region; M51.36 Other intervertebral disc degeneration, lumbar region
CPT/HCPCS: 72100; 73502; 73562

== ENCOUNTER 2023-12-30 12:44 | Outpatient (CLI) | payer MEDICARE, SELFPAY ==
--- NOTE | ~2023-12-30 | US_ITS ---
EXAMINATION: US arterial ankle brachial ind DATE: 12/30/2023 13:12 INDICATION: Peripheral arterial occlusive disease. Left leg pain and numbness. TECHNIQUE: Segmental pressures and plethysmographic and Doppler waveforms of the brachial and lower e xtremity arteries were obtained. COMPARISON: None. FINDINGS: Right and left brachial artery pressures of 159 mm Hg and 159 mm Hg, respectively, are concordant (no rmal difference <= 30 mmHg). The right ankle-brachial index (HESHAM) is 1.10 (normal >= 0.9-1.0). The right great toe-brachial index (TBI) is 0.85 (normal >= 0.65). Arterial Doppler waveforms are triphasic with brisk systolic upstroke s at both right posterior tibial and dorsalis pedis arteries. The left HESHAM is 1.04. The left TBI is 0.64. Arterial Doppler waveforms are biphasic at the left poste rior tibial artery with brisk systolic upstroke. There is a brisk systolic upstroke and monophasic wa veform at the left dorsalis pedis artery. The systolic peak and appears reversed suggesting possibili ty of reversal flow although direct imaging of the vessels not performed as part of an HESHAM study this could potentially represent artifact of an atypical course of the vessel. IMPRESSION: 1. Mild arterial occlusive disease to the left lower limb with normal left HESHAM but minimally decrease d left TBI. 2. Possible flow reversal in the left dorsalis pedis artery which can be seen with a more proximal oc clusion. 3. No significant arterial occlusive disease to the right lower limb with normal right HESHAM and TBI. Reviewed, dictated and finalized at location A. IMPRESSION: 1. Mild arterial occlusive disease to the left lower limb with normal left HESHAM but minimally decreased left TBI. 2. Possible flow reversal in the left dorsalis pedis artery which can be seen w ith a more proximal occlusion. 3. No significant arterial occlusive disease to the right lower limb with reji l right HESHAM and TBI.
== END 2023-12-30 12:45 | disposition home or self-care (01) ==
LOC: CHSIMG 12:44
PROVIDERS: PCP Internal Medicine; Visit Provider Internal Medicine
DX: R20.0 Anesthesia of skin (principal); M79.605 Pain in left leg; I73.9 Peripheral vascular disease, unspecified
CPT/HCPCS: 93922

== ENCOUNTER 2024-01-06 09:41 | Outpatient (CLI) | payer MEDICARE, SELFPAY ==
--- NOTE | ~2024-01-06 | MR_ITS ---
MRI of the lumbar spine Clinical History: Lower extremity pain Technique: Axial T2-weighted images, and sagittal T1-weighted, T2-weighted, and T2 fat-sat images wer e acquired. Findings: There is no fracture. There is minimal grade 1 anterolisthesis of L3 over L4. No bone marro w signal abnormality seen. At L1-L2, there is no disc bulge or herniation. There is mild to moderate facet arthropathy. No centr al canal stenosis or neural foraminal narrowing. At L2-L3, there is mild diffuse disc bulge with moderate facet arthropathy. No central canal stenosis or neural foraminal narrowing. At L3-L4, there is diffuse disc bulge and advanced facet arthropathy. No gerard central canal stenosis or neural foraminal narrowing. At L4-L5, there is advanced degenerative disc narrowing. There is minimal disc bulge with moderate fa cet arthropathy. There is minimal central canal stenosis. There is mild to moderate left neural stephany inal narrowing, and mild right neural foraminal narrowing. At L5-S1, there is minimal disc bulge and moderate facet arthropathy. No central canal stenosis or ne ural foraminal narrowing. Paravertebral soft tissues are unremarkable. Impression: Mild degenerative spondylosis overall, as detailed above. Reviewed, dictated and finalized at location . Impression: Mild degenerative spondylosis overall, as detailed above.
== END 2024-01-06 09:42 | disposition home or self-care (01) ==
LOC: CHSIMG 09:42
PROVIDERS: PCP Internal Medicine; Visit Provider Internal Medicine
DX: M79.605 Pain in left leg (principal); M43.06 Spondylolysis, lumbar region
CPT/HCPCS: 72148

== ENCOUNTER 2024-02-28 13:37 | Outpatient (CLI) | payer MEDICARE, SELFPAY ==
--- NOTE | ~2024-02-28 | MM_ITS ---
EXAMINATION: MM screening thuy BI w verna HISTORY: Screening TECHNIQUE: Craniocaudal and mediolateral oblique 3-D tomosynthesis images were obtained and synthetic 2-D images were generated. CAD analysis was submitted and interpreted. COMPARISON: No prior mammogram is available for comparison at this institution. BREAST PARENCHYMAL COMPOSITION: 02/17/2023 FINDINGS: There is no evidence of suspicious mass, calcification, or architectural distortion to sugg est malignancy in either breast. There has been no suspicious interval change. IMPRESSION: 1. No mammographic evidence of malignancy. 2. Recommend routine screening mammography in one year. BI-RADS Category 1: Negative Reviewed, dictated and finalized at location B.
== END 2024-02-28 13:38 | disposition home or self-care (01) ==
LOC: CHSIMG 13:38
PROVIDERS: PCP Internal Medicine; Visit Provider Internal Medicine
DX: Z12.31 Encounter for screening mammogram for malignant neoplasm of breast (principal)
CPT/HCPCS: 77063; 77067

== ENCOUNTER 2024-10-21 23:24 | Emergency (ER) | payer MEDICARE, SELFPAY ==
--- NOTE | ~2024-10-21 | XR_ITS ---
XR chest 2V Ordering provider: Desean Kwong MD History: 79 years Female with . Lightheadedness. COUGH. . Comparison: None. FINDINGS: MEDIASTINUM: The cardiac silhouette is not enlarged. Small sliding hiatus hernia. LUNGS: No infiltrates, effusions or pneumothorax. Underlying emphysematous changes. OTHER: No free air under the diaphragm. Kyphosis with degenerative changes of the spine. IMPRESSION: No acute cardiopulmonary pathology. Reviewed, dictated and finalized at location A.
[2024-10-21 23:26] VITALS: BP 187/65; PULSE 88; RESP 18; TEMP 36; O2SAT 99
--- OUTSIDE RECORDS SUMMARY | 2024-10-21 23:26 | XMS_ITS | Clinical Summary ---
Author Organization [facility] Address [address] [place] [id number] Phone Care Team Providers Care On Site Wastewater Systems Technician Name Role Phone Eugene Dorado MD Primary Care Provider Allergies Active Allergy Reactions Criticality Noted Date Comments Acetaminophen 12/08/2021 Corticosteroids 12/08/2021 Hydrocodone 12/08/2021 Lisinopril 12/08/2021 Medications Medication Sig Dispensed Refills Start Date End Date Status amLODIPine (NORVASC) 5 MG tablet Take 10 mg by mouth 1 (one) time each day in the morning 10/10/2021 Active Blood Glucose Monitoring Suppl (Innolume Verio Flex System) w/Device kit USE TO TEST TWICE DAILY 10/27/2021 Active furosemide (LASIX) 20 MG tablet Take 20 mg by mouth 1 (one) time each day in the morning 10/04/2021 Active OneTouch Verio test strip USE TO TEST BLOOD SUGAR TWICE DAILY 10/23/2021 Active Lancets (AppRedeemTouch Delica Plus [id number]) misc USE TO TEST BLOOD SUGAR TWICE DAILY 10/23/2021 Active potassium chloride (KLOR-CON) 10 MEQ CR tablet Take 10 mEq by mouth 1 (one) time each day 10/04/2021 Active glimepiride (AMARYL) 1 MG tablet Take 1 mg by mouth 1 (one) time each day before breakfast Active irbesartan (AVAPRO) 75 MG tablet Take 1 tablet (75 mg total) by mouth every night 30 tablet 11 06/10/2022 Active Active Problems Problem Noted Date Diagnosed Date Chronic kidney disease stage 3B 06/10/2022 Other acute kidney failure 12/08/2021 Immunizations Name Administration Dates Next Due Influenza TIV (IM) 06/10/2022(Deferred: Patient Refused) Pneumococcal Conjugate 04/09/2021 Family History Medical History Relation Comments Kidney disease Neg Hx Social History Tobacco Use Types Packs/Day Years Used Date Smoking Tobacco: Never Smokeless Tobacco: Never Alcohol Use Standard Drinks/Week Comments Not Currently 0 (1 standard drink = 0.6 oz pur e alcohol) Sex and Gender Information Value Date Recorded Sex Assigned at Not on file Gender Identity Not on file Sexual Orientation Not on file Last Filed Vital Signs Vital Sign Reading Time Taken Comments Blood Pressure 138/72 06/10/2022 10:57 AM CDT Pulse 84 06/10/2022 10:57 AM CDT Temperature 36.2 C (97.2 F) 06/10/2022 10:57 AM CDT Respiratory Rate - - Oxygen Saturation - - Inhaled Oxygen Concentration - - Weight 42.2 kg (93 lb) 06/10/2022 10:57 AM CDT Height 137.2 cm (4' 6 ) 06/10/2022 10:57 AM CDT Body Mass Index 22.42 06/10/2022 10:57 AM CDT Plan of Treatment Health Maintenance Due Date Last Done Comments Pneumococcal PPSV23/PCV13 65 + Years / High and Highest Risk (1 of 4 - PCV) 1951 Influenza Vaccine (#1) 2024 Care Teams On Site Wastewater Systems Technician Relationship Specialty Start Date End Date Eugene Dorado MD [address] [place] [address] PCP - General Internal Medicine 11/11/21
--- OUTSIDE RECORDS SUMMARY | 2024-10-21 23:26 | XMS_ITS | CONTINUITY OF CARE DOCUMENT ---
Author Name cat shelton Address Unknown Organization [facility] Address [address] [place] [address] Phone [phone] Care Team Providers Care Fire Boat Engineer Name Role Phone Ashish Cortes MD Unavailable [phone] MELLISSA MORENO MD Unavailable MELLISSA MORENO MD Unavailable [phone] RESULTS Date Observation Value Provider Reference Range Interpretation Location platelet count 185 10*3/mm3 [facility] hematocrit, blood 40.1 % [facility] triglyceride, serum, fasting 220 mg/dL [facility] HDL cholesterol, serum 53 mg/dL [facility] lipoprotein, beta, serum, point, quantitative, calculated 147 mg/dL [facility] cholesterol, serum 244 mg/dL [facility] alanine aminotransferase (SGPT), serum 40 1/L [facility] aspartate aminotransferase (SGOT), serum 32 1/L [facility] creatinine, serum 0.80 mg/dL [facility] potassium, serum 4.7 mmol/L [facility] sodium, serum 140 mmol/L [facility] INSURANCE PROVIDERS Payer name Policy type / Coverage type [place] red democrat ID AARP MEDICARE ADVANTAGE ([facility] COMPLETE PPO) Other [id number]
--- NOTE | 2024-10-21 23:37 | ECG_ITS ---
Test Date: 2024-10-21 23:46:38 Measurements Intervals [place] Rate: 74 P: 41 NC: 192 QRS: 48 QRSD: 73 T: 36 QT: 400 QTc: 444 Interpretive Statements SINUS RHYTHM Nonspecific st-t wave changes No previous ECG available for comparison Electronically Signed On 10-23-2024 15:06:40 CDT by Jax John M.D.
--- OUTSIDE RECORDS SUMMARY | 2024-10-21 23:42 | XMS_ITS | CONTINUITY OF CARE DOCUMENT ---
Author Name cat shelton Address Unknown Organization [facility] Address [address] [address] [place] [address] Phone [phone] Care Team Providers Care Marketing Finance Specialist Name Role Phone Ashish Cortes MD Unavailable [phone] MELLISSA MORENO MD Unavailable [phone] MELLISSA MORENO MD Unavailable [phone] RESULTS Date Observation Value Provider Reference [...] Payer name Policy type / Coverage type [place] red constitution party ID AARP MEDICARE ADVANTAGE ([facility] COMPLETE PPO) Other [id number]
--- NOTE | 2024-10-21 23:44 | ED.GENADULT ---
HPI - General Adult General Chief complaint: Unspecified Stated complaint: unspecified Time Seen by Provider: 10/21/24 23:27 History of Present Illness HPI narrative: 79-year-old woman with history of hypertension status post cholecystectomy and hiatal hernia repair presents with nausea and belching after eating a greasy beef casodilla earlier in the evening around 5:00 p.m. She also reports feeling shaky and has a dry mouth. She has not taken her blood pressure medicine this evening because of how she has been feeling. the patient reports that she has had some increased defecation over the past few hours though she is not having diarrhea. She denies any substernal chest pain, abdominal pain, shortness of breath. Does report that she had some fractured ribs couple of weeks ago after she fell over reaching into the wash machine. She denies having fever or vomiting. She reports intermittent dizziness and stiffness in her extremities over the past several months. She denies having any unilateral deficits or weakness. No changes in speech. Related Data Home Medications ?Medication ?Instructions ?Recorded ?Confirmed ?Last Taken ?Type amlodipine 5 mg tablet (Norvasc) 5 mg PO QHS 12/08/22 06/27/24 Unknown History cyanocobalamin (vitamin B-12) 1,000 mcg PO DAILY 12/08/22 06/27/24 Unknown History 1,000 mcg capsule cholecalciferol (vitamin D3) 50 50 mcg PO DAILY 06/26/24 06/27/24 Unknown History mcg (2,000 unit) capsule Allergies Allergy/AdvReac Type Severity Reaction Status Date / Time lisinopril Allergy Intermediate Difficulty Verified 10/21/24 23:36 Breathing atorvastatin Allergy leg cramps Verified 10/21/24 23:36 rosuvastatin Allergy leg cramps Verified 10/21/24 23:36 acetaminophen AdvReac Difficulty Verified 10/21/24 23:36 Breathing aspirin AdvReac Difficulty Verified 10/21/24 23:36 Breathing codeine AdvReac Difficulty Verified 10/21/24 23:36 Breathing Corticosteroids AdvReac Swelling Verified 10/21/24 23:36 (Glucocorticoids) of Lip/Tongue/Throat hydrocodone AdvReac Difficulty Verified 10/21/24 23:36 Breathing morphine AdvReac Difficulty Verified 10/21/24 23:36 Swallowing Sulfa (Sulfonamide AdvReac Difficulty Verified 10/21/24 23:36 Antibiotics) Breathing PMFSH Past Medical History Medical History Diabetes mellitus Social History Social History Smoking packs per day: 0.5 Smoking cigarettes per day: 10.0 Years smoked: 20 Smoking pack-years: 10.00 Smoking status: Light tobacco smoker Tobacco type: cigarettes Second hand tobacco smoke exposure: No Alcohol intake: never Substance use: never Substance use type: does not use Do You Feel Safe in your Home?: Yes Lack of Transportation: No Lack of Food: Never True Current Housing: I Have Housing Concerned About Future Housing: No Difficulty Paying Gas/Electric Bills: No Difficulty Paying for Meds: No Currently Unemployed: Decline to Answer Education: Decline to Answer Difficulty w/ Childcare or Family Care: No Gender identity (if verbalized by the patient): Female Sexual Orientation (if Verbalized by the Patient): Straight or Heterosexual Spiritual care concerns: No Exam Narrative: GEN: Awake, alert, and appropriate to situation. Generally well-appearing. Nervous. HEENT: No rhinorrhea noted, mucous membranes moist. No scleral icterus or conjunctival injection. CV: Normal rate, regular rhythm, S1S2 no M/G/R. 2+ distal pulses all extremities. No peripheral edema noted. PULM: Non-labored respiration. Clear to auscultation bilaterally. No wheezes, rales, rhonchi. GI: Abdomen soft, non -tender to palpation. No rigidity, distention or guarding.? NEURO: Normal speech. No lateralizing or focal deficits noted. Course Vital Signs Vital signs: Vital Signs Temperature 36.0 C L 10/21/24 23: Pulse Rate 88 10/21/24 23: Respiratory Rate 18 10/21/24 23: Blood Pressure 187/65 H 10/21/24 23: Pulse Oximetry 99 10/21/24 23:26 Oxygen Delivery Room Air 10/21/24 23: Temperature 36.0 C L 10/21/24 23:26 Pulse Rate 88 10/21/24 23:26 Respiratory Rate 18 10/21/24 23:26 Blood Pressure 187/65 H 10/21/24 23:26 Pulse Oximetry 99 10/21/24 23:26 Oxygen Delivery Room Air 10/21/24 23:26 Medical Decision Making [facility] Narrative Medical decision making narrative: Patient was placed in Room #:? To Independent Historian: patient has adult children External Source Review: medical records Differential diagnosis includes but not limited to:? broad differential includes peptic ulcer disease, GERD, viral gastritis, other intra-abdominal process. May represent overall viral infection. Could be atypical presentation of ACS. given recent rib fractures may represent a pneumonia or other cardiopulmonary process. Medications were Reviewed: Home medications Independently Interpreted by me: EKG and labs and chest x-ray Medications, treatment, ED course: extensive lab workup including CBC, CMP, troponin, EKG and chest x-ray is largely unrevealing. Some lab abnormalities noted on her CMP but these are nearly identical to his CMP drawn almost 1 year earlier. For her part, the patient is feeling better after receiving her blood pressure medicine and famotidine. Chest x-ray does not show any significant infiltrates or consolidation. Social situation impacting patients care: lives independently in the community and has very good family support Shared decision making:? patient is amenable to discharge home with follow-up with her primary care physician Vital Signs Vital Signs: Vital Signs Temperature 36.0 C L 10/21/24 23:26 Pulse Rate 88 10/21/24 23:26 Respiratory Rate 18 10/21/24 23:26 Blood Pressure 187/65 H 10/21/24 23:26 Pulse Oximetry 99 10/21/24 23:26 Oxygen Delivery Room Air 10/21/24 23:26 Temperature 36.0 C L 10/21/24 23:26 Pulse Rate 88 10/21/24 23:26 Respiratory Rate 18 10/21/24 23:26 Blood Pressure 187/65 H 10/21/24 23:26 Pulse Oximetry 99 10/21/24 23:26 Oxygen Delivery Room Air 10/21/24 23:26 Lab Data 10/21/24 23:38 10/21/24 23:38 Labs: Lab Results 10/21/24 10/21/24 Range/Units 23:38 23:40 WBC 8.6 (4.8-10.8) K/mm3 RBC 4.21 (4.20-5.40) M/mm3 Hgb 12.2 (11.7-13.8) g/dL Hct 35.9 (35.0-42.0) % MCV 85.3 (78.0-102.0) fL MCH 29.0 (27.0-31.0) pg MCHC 34.0 (32-36) g/dL RDW 13.1 (11.6-14.4) % Plt Count 268 (150-420) K/mm3 MPV 9.7 (9.2-11.8) fl Sodium 128 L (136-145) mmol/L Potassium 3.8 (3.5-5.1) mmol/L Chloride 92 L (98-108) mmol/L Carbon Dioxide 23 (21-32) mmol/L Anion Gap 13 H (4-12) mmol/L BUN 21 H (7-18) mg/dL Creatinine 1.22 H (0.55-1.02) mg/dL Estim Creat Clear Calc Not Reportable Estimated GFR 42 L (59 - ) Glucose 206 H (70-99) mg/dL Calculated Osmolality 275 L (285-295) mOsm/kg Calcium 9.9 (8.5-10.1) mg/dL Total Bilirubin 0.4 (0.00-1.00) mg/dL AST 16 (15-37) U/L ALT 21 (14-59) U/L Alkaline Phosphatase 155 H (46-116) U/L Troponin I 6.5 (0.00-60.4) ng/L Total Protein 9.1 H (6.4-8.2) g/dL Albumin 4.3 (3.4-5.0) g/dL Lipase 38 (16-77) U/L Urine Color Light yellow (Yellow) Urine Appearance Clear (Clear) Urine pH 6.0 (5.0-8.0) Ur Specific [place] 1.020 (1.010-1.020) Urine Protein 2+ H (Negative) Urine Glucose (UA) 1+ H (Negative) Urine Ketones 1+ H (Negative) Ur Blood (Man) Trace-intact H (Negative) Urine Nitrate Negative (Negative) Urine Bilirubin Negative (Negative) Urine Urobilinogen 0.2 (0.2-1.0) mg/dL Leukocyte Esterase Rfl Trace H (Negative) SWATI/UL Urine RBC 0-2 (0-2) /hpf Urine WBC 7-9 H (0-3) /hpf Urine WBC Clumps Present H (None) /hpf Ur Squamous Epith Cells Few (Few) /hpf Influenza A (RT-PCR) Negative (Negative) Influenza B (RT-PCR) Negative (Negative) RSV (RT-PCR) Negative (Negative) SARS-CoV-2 RNA (RT-PCR) Negative (Negative) Discharge Plan Discharge Clinical Impression: Acid indigestion Patient Disposition: Home, Self-Care Condition: Stable Instructions: Antibiotic Form, Indigestion (ED) Additional Instructions: I am able to offer some reassurance that there is nothing immediately dangerous happening with your heart. You had normal cardiac lab values and normal EKG. I suspect that you might have had some indigestion after having a greasy heavy dinner that she described. I do recommend that you follow-up with your primary care doctor as he might benefit from a little tighter blood pressure control and additional lab work to keep track of your blood sugars. Return to the emergency department or call 911 if you develop worsening chest pain, shortness of breath, syncope or signs and symptoms of stroke. Return to the emergency department or call 911 if? you develop high fever, shaking chills, or are unable to tolerate food or? fluids, have decreased urination, or are too sick to get out of bed. Patient Language: Faroese Prescriptions: No Action amlodipine [Norvasc] 5 mg tablet 5 mg PO QHS cyanocobalamin (vitamin B-12) 1,000 mcg capsule 1,000 mcg PO DAILY cholecalciferol (vitamin D3) 50 mcg (2,000 unit) capsule 50 mcg PO DAILY Follow-up/Referrals: Eugene Dorado MD [Primary Care Provider] - Time of Disposition: 01:06
--- NOTE | 2024-10-21 23:49 | PC.NURSE ---
to x ray per wheelchair
--- NOTE | 2024-10-21 23:50 | PC.NURSE ---
pt aware urine specimen is needed. unable to urinate at this time
[2024-10-22 00:17] LABS: Hematocrit 35.9 % (35.0-42.0); Hemoglobin 12.2 g/dL (11.7-13.8); Mean Corpuscular Volume 85.3 fL (78.0-102.0); Mean Platelet Volume 9.7 fl (9.2-11.8); Platelet Count Result 268 K/mm3 (150-420); Red Blood Count 4.21 M/mm3 (4.20-5.40); Red Cell Distribution Width 13.1 % (11.6-14.4); White Blood Count 8.6 K/mm3 (4.8-10.8)
[2024-10-22] MEDS: SODIUM CHLORIDE 0.9% IV 500 ML 999 ML IV CONT (00:25)
[2024-10-22] MEDS: amLODIPine BESYLATE 5 MG TABLET PO (00:26)
[2024-10-22] MEDS: FAMOTIDINE 20 MG TABLET PO (00:27)
[2024-10-22 00:36] LABS: Influenza A QL RT-PCR Negative (Negative); Influenza B QL RT-PCR Negative (Negative); RSV RNA, RT-PCR Negative (Negative); SARS-CoV-2 RNA PCR Negative (Negative)
[2024-10-22 00:38] LABS: Alanine Aminotransferase 21 U/L (14-59); Albumin Level 4.3 g/dL (3.4-5.0); Alkaline Phosphatase 155 U/L (46-116); Anion Gap 13 mmol/L (4-12); Aspartate Amino Transferase 16 U/L (15-37); Bilirubin,Total 0.4 mg/dL (0.00-1.00); Blood Urea Nitrogen 21 mg/dL (7-18); Calcium 9.9 mg/dL (8.5-10.1); Carbon Dioxide 23 mmol/L (21-32); Chloride 92 mmol/L (98-108); Estimated Glomerular Filt Rate 42; Glucose 206 mg/dL (70-99); Lipase 38 U/L (16-77); Osmolality Calculated 275 mOsm/kg (285-295); Potassium 3.8 mmol/L (3.5-5.1); Sodium 128 mmol/L (136-145); Total Protein 9.1 g/dL (6.4-8.2); Troponin I 6.5 ng/L (0.00-60.4)
[2024-10-22 00:43] LABS: Add Urine Microscopic? YES; Appearance Urine Clear (Clear); Bilirubin Urine Negative (Negative); Blood Urine Trace-intact (Negative); Color Urine Light Yellow (Yellow); Glucose Urine UA 1+ (Negative); Ketones Urine 1+ (Negative); Leukocyte Esterase Ur Trace LEU/UL (Negative); Nitrate Urine Negative (Negative); Protein Urine 2+ (Negative); Urobilinogen Urine 0.2 mg/dL (0.2-1.0)
[2024-10-22 00:49] LABS: RBC Urine 0-2 /hpf (0-2); Squamous Epithelial Cell Urine Few /hpf (Few); WBC Clumps Urine Present /hpf
[2024-10-22 01:16] VITALS: BP 145/53; PULSE 71; O2SAT 99
== END 2024-10-22 01:15 | disposition home or self-care (01) ==
PROVIDERS: Emergency Provider Family Medicine; PCP Internal Medicine
DX: K30 Functional dyspepsia (principal); I10 Essential (primary) hypertension; E11.9 Type 2 diabetes mellitus without complications; F17.210 Nicotine dependence, cigarettes, uncomplicated; Z90.49 Acquired absence of other specified parts of digestive tract; Z20.822 Contact with and (suspected) exposure to COVID-19
CPT/HCPCS: 36415; 71046; 80053; 81001; 83690; 84484; 85027; 87637; 93005; 96360; 99284; A9270; J7040

== ENCOUNTER 2024-12-13 00:13 | Observation (INO) | payer MEDICARE, SELFPAY ==
[2024-12-13] VITALS (10 sets, daily range): BP systolic 142–169; BP diastolic 53–66; PULSE 74–94; RESP 14–17; TEMP 36.3–36.5; O2SAT 96–99; BMI 21.4
--- NOTE | ~2024-12-13 | CT_ITS ---
Non-contrast Head CT History: Dizziness Technique: Axial non-contrast imaging of the brain was performed. Dose reduction technique was used on this scan by utilizing automated exposure control and iterative reconstruction technique. The dose -length product (DLP) was 605.33 mGy-cm. Findings: There is no evidence of intracranial hemorrhage, mass lesion, or acute infarct. Brain par enchyma appears normal. The ventricles and subarachnoid spaces are normal in size. The calvarium ap pears normal. The visualized paranasal sinuses and mastoid air cells are clear. Impression: No significant abnormality seen. Reviewed, dictated and finalized at location . Impression: No significant abnormality seen.
--- NOTE | 2024-12-13 00:15 | ED_ITS ---
HPI - Dizziness General Chief Complaint: Unspecified Stated Complaint: light headed, dizzy (unspecified) Time Seen by Provider: 12/13/24 00:15 Source: patient and family Mode of arrival: ambulatory Limitations: no limitations History of Present Illness HPI Narrative: patient is a 79-year-old female with some dizziness and lightheadedness this evening and it is similar to prior episode with low sodium. MD elicited complaint: dizziness and lightheadedness Pertinent past history: other ( Hypertension) Onset (ago): hour(s) ( 3) Timing: gradual onset and constant Severity: moderate Description: sense of movement and lightheadedness Context: other ( patient having continued and unresolved dizziness and lightheadedness this evening.) History of similar symptoms: Yes Exacerbating factors: movement/ambulation Relieving factors: remaining still Associated symptoms: denies other symptoms Associated neuro symptoms: other ( None) Related Data Home Medications ?Medication ?Instructions ?Recorded ?Confirmed ?Last Taken ?Type amlodipine 5 mg tablet (Norvasc) 5 mg PO QHS 12/08/22 06/27/24 Unknown History cyanocobalamin (vitamin B-12) 1,000 mcg PO DAILY 12/08/22 06/27/24 Unknown History 1,000 mcg capsule cholecalciferol (vitamin D3) 50 50 mcg PO DAILY 06/26/24 06/27/24 Unknown History mcg (2,000 unit) capsule Allergies Allergy/AdvReac Type Severity Reaction Status Date / Time lisinopril Allergy Intermediate Difficulty Verified 12/13/24 00:48 Breathing atorvastatin Allergy leg cramps Verified 12/13/24 00:48 rosuvastatin Allergy leg cramps Verified 12/13/24 00:48 acetaminophen AdvReac Difficulty Verified 12/13/24 00:48 Breathing aspirin AdvReac Difficulty Verified 12/13/24 00:48 Breathing codeine AdvReac Difficulty Verified 12/13/24 00:48 Breathing Corticosteroids AdvReac Swelling Verified 12/13/24 00:48 (Glucocorticoids) of Lip/Tongue/Throat hydrocodone AdvReac Difficulty Verified 12/13/24 00:48 Breathing morphine AdvReac Difficulty Verified 12/13/24 00:48 Swallowing Sulfa (Sulfonamide AdvReac Difficulty Verified 12/13/24 00:48 Antibiotics) Breathing Review of Systems 2 Review of Systems: All systems reviewed & are unremarkable except as noted in HPI and below Constitutional: Constitutional: Reports no additional constitutional complaints Eyes: Eyes: Reports no additional eye complaints ENT: Reports system reviewed and no additional complaints, except as documented Cardiovascular: Cardiovascular: Reports no additional cardiovascular complaints Respiratory: Respiratory: Reports no additional respiratory complaints Gastrointestinal: Gastrointestinal: Reports no additional gastrointestinal complaints Genitourinary: Genitourinary: Reports no additional female genitourinary complaints Musculoskeletal: Musculoskeletal: Reports no additional musculoskeletal complaints Integumentary/Breasts: Skin/Breast: Reports system reviewed and no additional complaints, except as docu Neurologic: Reports system reviewed and no additional complaints, except as documented Psychiatric: Psychiatric: Reports no additional psychiatric complaints Endocrine: Endocrine: Reports no additional endocrine complaints Hematologic/Lymphatic: Hematologic/Lymphatic: Reports no additional hematologic/lymphatic complaints Allergic/Immunologic: Allergic/Immunologic: Reports no additional allergic/immunologic complaints [facility] Past Medical History Medical History Diabetes mellitus Social History Social History Smoking packs per day: 0.5 Smoking cigarettes per day: 10.0 Years smoked: 20 Smoking pack-years: 10.00 Smoking status: Light tobacco smoker Tobacco type: cigarettes Second hand tobacco smoke exposure: No Alcohol intake: never Substance use: never Substance use type: does not use Do You Feel Safe in your Home?: Yes Lack of Transportation: No Lack of Food: Never True Current Housing: I Have Housing Concerned About Future Housing: No Difficulty Paying Gas/Electric Bills: No Difficulty Paying for Meds: No Currently Unemployed: Decline to Answer Education: Decline to Answer Difficulty w/ Childcare or Family Care: No Gender identity (if verbalized by the patient): Female Sexual Orientation (if Verbalized by the Patient): Straight or Heterosexual Spiritual care concerns: No Exam 2 Const: General: healthy appearing Nutritional Appearance: well nourished Orientation/consciousness: patient oriented x3 HENMT: Head: normal to inspection Ears: TM's normal bilaterally F livia/Nose/Sinus: Normal external nose present Eyes: Conjunctivae: conjunctivae normal Pupils: Equal, round and reactive pupils present EOM: EOMs intact bilaterally Neck: Neck: normal visual inspection Chest: Chest palpation & inspection: normal inspection of the chest Resp: Effort & Inspection: normal respiratory effort and not labored A uscultation: clear to auscultation bilaterally and no crackles Cardio: Rate: regular rate Rhythm: regular rhythm Heart sounds: no murmurs GI: Inspection: non-distended GI Palp: Yes Soft to palpation and No Tenderness to palpation present (GI) Auscultation: normal bowel sounds : General: Yes bladder normal to palpation Back/Spine/Pelvis: Back: no CVA tenderness Skin: General skin exam: normal color Rashes: no rashes Wounds: no wounds Neuro: General: patient oriented x3 Cranial nerves: Yes Nystagmus not present Speech: normal speech Extrem: General: normal to inspection Psych: Mental Status: mental status grossly normal Affect: normal affect Attitude: cooperative Course Vital Signs Vital signs: Vital Signs Temperature 36.3 C L 12/13/24 00:13 Pulse Rate 81 12/13/24 00:13 Respiratory Rate 16 12/13/24 00:13 Blood Pressure 169/66 H 12/13/24 00:13 Pulse Oximetry 99 12/13/24 00:13 Oxygen Delivery Room Air 12/13/24 00:13 Temperature 36.3 C L 12/13/24 00:13 Pulse Rate 81 12/13/24 00:13 Respiratory Rate 16 12/13/24 00:13 Blood Pressure 142/53 H 12/13/24 02:52 Pulse Oximetry 99 12/13/24 02:52 Oxygen Delivery Room Air 12/13/24 00:13 MDM - Dizziness MDM Narrative Medical decision making narrative: patient is a 79-year-old female with dizziness and lightheadedness this evening here for evaluation. We will do a neurological / cardiology workup at this time. Lab Data Attestation: I reviewed the patient's lab results. 12/13/24 01:11 12/13/24 01:11 Labs: Lab Results 12/13/24 12/13/24 Range/Units 01:11 01:30 WBC 8.6 (4.8-10.8) K/mm3 RBC 3.73 L (4.20-5.40) M/mm3 Hgb 10.8 L (11.7-13.8) g/dL Hct 32.1 L (35.0-42.0) % MCV 86.1 (78.0-102.0) fL MCH 29.0 (27.0-31.0) pg MCHC 33.6 (32-36) g/dL RDW 13.1 (11.6-14.4) % Plt Count 230 (150-420) K/mm3 MPV 9.7 (9.2-11.8) fl Immature Gran % (Auto) 0.3 H (0.0-0.0) % Neut % (Auto) 82.9 H (50.0-70.0) % Lymph % (Auto) 13.6 L (18.0-42.0) % [place] % (Auto) 2.7 (2.0-11.0) % Eos % (Auto) 0.2 L (1.0-6.0) % Baso % (Auto) 0.3 (0.0-1.0) % Lymph # (Auto) 1.17 (1.10-4.50) K/mm3 [place] # (Auto) 0.23 (0.10-0.90) K/mm3 Eos # (Auto) 0.02 (0.02-0.50) K/mm3 Baso # (Auto) 0.03 (0.00-0.10) K/mm3 Abs Immat Gran (auto) 0.03 H (0.00-0.00) K/mm3 Absolute Neuts (auto) 7.14 (1.70-7.20) K/mm3 Absolute Nucleated RBC 0.00 (0.00-0.00) K/mm3 Nucleated RBC % 0.0 (0-0.0) % Sodium 123 L (136-145) mmol/L Potassium 4.4 (3.5-5.1) mmol/L Chloride 90 L (98-108) mmol/L Carbon Dioxide 25 (21-32) mmol/L Anion Gap 8 (4-12) mmol/L BUN 16 (7-18) mg/dL Creatinine 1.09 H (0.55-1.02) mg/dL Estim Creat Clear Calc Not Reportable Estimated GFR 48 L (59 - ) Glucose 202 H (70-99) mg/dL Calculated Osmolality 263 L (285-295) mOsm/kg Calcium 9.0 (8.5-10.1) mg/dL Total Bilirubin 0.4 (0.00-1.00) mg/dL AST 34 (15-37) U/L ALT 17 (14-59) U/L Alkaline Phosphatase 94 (46-116) U/L Troponin I 5.4 (0.00-60.4) ng/L Total Protein 7.5 (6.4-8.2) g/dL Albumin 3.6 (3.4-5.0) g/dL Urine Color Light yellow (Yellow) Urine Appearance Clear (Clear) Urine pH 6.0 (5.0-8.0) Ur Specific [place] 1.020 (1.010-1.020) Urine Protein 2+ H (Negative) Urine Glucose (UA) 2+ H (Negative) Urine Ketones Trace H (Negative) Ur Blood (Man) Trace-intact H (Negative) Urine Nitrate Negative (Negative) Urine Bilirubin Negative (Negative) Urine Urobilinogen 0.2 (0.2-1.0) mg/dL Leukocyte Esterase Rfl Trace H (Negative) SWATI/UL Urine RBC 0-2 (0-2) /hpf Urine WBC 16-20 H (0-3) /hpf Urine WBC Clumps Present H (None) /hpf Ur Squamous Epith Cells Few (Few) /hpf Urine Bacteria 1+ (None) /hpf Hyaline Casts 0-2 (None) /lpf Urine Mucus Few H /lpf Imaging Data Attestation: I personally reviewed and interpreted this imaging study as follows: Radiologist's impression: CT scan the head was negative for acute process ECG Data EKG #1: Attestation: I personally reviewed and interpreted this ECG as follows: EKG Interpretation: normal rate, sinus rhythm, no ectopy, non-specific ST changes, normal QRS, normal QT and NL axis Discharge Plan Discharge Clinical Impression: Acute UTI, Dizziness, Acute hyponatremia Patient Disposition: Acute Care [facility] Condition: Stable Patient Language: Moldovan Prescriptions: No Action amlodipine [Norvasc] 5 mg tablet 5 mg PO QHS cyanocobalamin (vitamin B-12) 1,000 mcg capsule 1,000 mcg PO DAILY cholecalciferol (vitamin D3) 50 mcg (2,000 unit) capsule 50 mcg PO DAILY Follow-up/Referrals: Eugene Dorado MD [Primary Care Provider] - Time of Disposition: 03:10
--- OUTSIDE RECORDS SUMMARY | 2024-12-13 00:17 | XMS_ITS | Clinical Summary ---
Author Organization [facility] Address [address] [place] [address] Phone Care Team Providers Care Stacker And Sorter Operator Name Role Phone Eugene Dorado MD Primary Care Provider [phone] Allergies Active Allergy Reactions Criticality Noted Date Comments Acetaminophen 12/08/2021 Corticosteroids 12/08/2021 Hydrocodone 12/08/2021 Lisinopril 12/08/2021 Medications amLODIPine (NORVASC) 5 MG tablet Take 10 mg by mouth 1 (one) time each day in the morning 2 Active Blood Glucose Monitoring Suppl ([employer] Verio Flex System) w/Device kit USE TO TEST TWICE DAILY 2 Active furosemide (LASIX) 20 MG tablet Take 20 mg by mouth 1 (one) time each day in the morning 2 Active OneTouch Verio test strip USE TO TEST BLOOD SUGAR TWICE DAILY 2 Active Lancets (FanLibTouch Delica Plus [id number]) misc USE TO TEST BLOOD SUGAR TWICE DAILY 2 Active potassium chloride (KLOR-CON) 10 MEQ CR tablet Take 10 mEq by mouth 1 (one) time each day 2 Active glimepiride (AMARYL) 1 MG tablet Take 1 mg by mouth 1 (one) time each day before breakfast Active irbesartan (AVAPRO) 75 MG tablet Take 1 tablet (75 mg total) by mouth every night 30 tablet 11 2 Active Active Problems Problem Noted Date Diagnosed Date Chronic kidney disease stage 3B 06/10/2022 Other acute kidney failure 12/08/2021 Immunizations Immunization Administration Dates Next Due Influenza TIV (IM) 06/10/2022(Deferred: Patient Refused) Pneumococcal Conjugate 04/09/2021 Family History Medical History Relation Comments Kidney disease Neg Hx Social History Tobacco Use Types Packs/Day Years Used Date Smoking Tobacco: Never Smokeless Tobacco: Never Alcohol Use Standard Drinks/Week Comments Not Currently 0 (1 standard drink = 0.6 oz pur e alcohol) Comments Unknown Sex and Gender Information Value Date Recorded Sex Assigned at Not on file Legal Sex Female 1:40 PM MDT Gender Identity Not on file Sexual Orientation [...] / High and Highest Risk (1 of 5 - PCV) 1964 Influenza Vaccine (Season Ended) 2025 Insurance [employer] MEDICARE Care Teams Stacker And Sorter Operator Relationship Specialty Start Date End Date Eugene Dorado MD [address] [place] [address] PCP - General Internal Medicine 11/11/21
--- OUTSIDE RECORDS SUMMARY | 2024-12-13 00:17 | XMS_ITS | CONTINUITY OF CARE DOCUMENT ---
Author Name cat shelton Address Unknown Organization [facility] Address [address] [place] [address] [address] [place] [address] Phone [phone] Care Team Providers Care Mud Boss Name Role Phone Ashish Cortes MD Unavailable [phone] MELLISSA MORENO MD Unavailable MELLISSA MORENO MD Unavailable [phone] RESULTS Date Observation Value Provider Reference [...] Payer name Policy type / Coverage type [place] red alliance party ID AARP MEDICARE ADVANTAGE ([facility] COMPLETE PPO) Other [id number]
--- NOTE | 2024-12-13 00:23 | ECG_ITS ---
Test Date: 2024-12-13 00:53:40 Measurements Intervals [place] Rate: 73 P: 29 AK: 207 QRS: 27 QRSD: 82 T: 20 QT: 380 QTc: 421 Interpretive Statements SINUS RHYTHM NONSPECIFIC T-WAVE ABNORMALITY BORDERLINE ECG Compared to ECG 10/21/2024 23:46:38 NO SIGNIFICANT CHANGE Electronically Signed On 12-13-2024 07:29:42 CDT by Robert Card M.D.
[2024-12-13 01:18] LABS: Basophils Absolute Auto 0.03 K/mm3 (0.00-0.10); Basophils Percent Auto 0.3 % (0.0-1.0); Eosinophils Absolute Auto 0.02 K/mm3 (0.02-0.50); Eosinophils Percent Auto 0.2 % (1.0-6.0); Hematocrit 32.1 % (35.0-42.0); Hemoglobin 10.8 g/dL (11.7-13.8); Immature Granulocyte Absolute 0.03 K/mm3 (0.00-0.00); Immature Granulocyte Percent A 0.3 % (0.0-0.0); Lymphocytes Absolute Auto 1.17 K/mm3 (1.10-4.50); Lymphocytes Percent Auto 13.6 % (18.0-42.0); Mean Corpuscular HGB Conc 33.6 g/dL (32-36); Mean Corpuscular Volume 86.1 fL (78.0-102.0); Mean Platelet Volume 9.7 fl (9.2-11.8); Monocytes Absolute Auto 0.23 K/mm3 (0.10-0.90); Monocytes Percent Auto 2.7 % (2.0-11.0); Neutrophils Absolute Auto 7.14 K/mm3 (1.70-7.20); Neutrophils Percent Auto 82.9 % (50.0-70.0); Platelet Count Result 230 K/mm3 (150-420); Red Blood Count 3.73 M/mm3 (4.20-5.40); Red Cell Distribution Width 13.1 % (11.6-14.4); White Blood Count 8.6 K/mm3 (4.8-10.8)
--- OUTSIDE RECORDS SUMMARY | 2024-12-13 01:20 | XMS_ITS | CONTINUITY OF CARE DOCUMENT ---
Author Name cat shelton Address Unknown Organization [facility] Address [address] [place] [address] [address] [place] [address] Phone [phone] Care Team Providers Care Clock Mechanic Name Role Phone Ashish Cortes MD Unavailable [phone] MELLISSA MORENO MD Unavailable MELLISSA MORENO MD Unavailable [phone] RESULTS Date Observation Value Provider Reference [...] Payer name Policy type / Coverage type [place] red alliance party ID AARP MEDICARE ADVANTAGE ([facility] COMPLETE PPO) Other [id number]
--- OUTSIDE RECORDS SUMMARY | 2024-12-13 01:20 | XMS_ITS | Clinical Summary ---
Author Organization [facility] Address [address] [place] [phone] Phone Care Team Providers Care Hand Former Helper Name Role Phone Eugene Dorado MD Primary Care Provider [phone] Allergies Active Allergy Reactions Criticality Noted Date Comments Acetaminophen 12/08/2021 Corticosteroids 12/08/2021 Hydrocodone 12/08/2021 Lisinopril 12/08/2021 Medications amLODIPine (NORVASC) 5 MG tablet Take 10 mg by mouth 1 (one) time each day in the morning 2 Active Blood Glucose Monitoring Suppl ([employer]uch Verio Flex System) w/Device kit USE TO TEST TWICE DAILY 2 Active furosemide (LASIX) 20 MG tablet Take 20 mg by mouth 1 (one) time each day in the morning 2 Active OneTouch Verio test strip USE TO TEST BLOOD SUGAR TWICE DAILY 2 Active Lancets (OnAir3GTouch Delica Plus [id number]) misc USE TO TEST BLOOD SUGAR TWICE [...] 2025 Insurance [employer] MEDICARE Care Teams Hand Former Helper Relationship Specialty Start Date End Date Eugene Dorado MD [address] [place] [address] PCP - General Internal Medicine 11/11/21
[2024-12-13 01:37] LABS: Add Urine Microscopic? YES; Appearance Urine Clear (Clear); Bilirubin Urine Negative (Negative); Blood Urine Trace-intact (Negative); Color Urine Light Yellow (Yellow); Glucose Urine UA 2+ (Negative); Ketones Urine Trace (Negative); Leukocyte Esterase Ur Trace LEU/UL (Negative); Nitrate Urine Negative (Negative); Protein Urine 2+ (Negative); Urobilinogen Urine 0.2 mg/dL (0.2-1.0)
[2024-12-13 01:38] LABS: Alanine Aminotransferase 17 U/L (14-59); Albumin Level 3.6 g/dL (3.4-5.0); Alkaline Phosphatase 94 U/L (46-116); Anion Gap 8 mmol/L (4-12); Aspartate Amino Transferase 34 U/L (15-37); Bilirubin,Total 0.4 mg/dL (0.00-1.00); Blood Urea Nitrogen 16 mg/dL (7-18); Carbon Dioxide 25 mmol/L (21-32); Chloride 90 mmol/L (98-108); Estimated Glomerular Filt Rate 48; Glucose 202 mg/dL (70-99); Osmolality Calculated 263 mOsm/kg (285-295); Potassium 4.4 mmol/L (3.5-5.1); Sodium 123 mmol/L (136-145); Total Protein 7.5 g/dL (6.4-8.2); Troponin I 5.4 ng/L (0.00-60.4)
[2024-12-13 01:48] LABS: Bacteria Urine 1+ /hpf; RBC Urine 0-2 /hpf (0-2); Squamous Epithelial Cell Urine Few /hpf (Few); WBC Clumps Urine Present /hpf; WBC Urine 16-20 /hpf (0-3)
[2024-12-13] MEDS: SODIUM CHLORIDE 0.9% IV 1,000 ML 125 ML IV CONT (01:48)
[2024-12-13 01:49] LABS: Hyaline Casts Urine 0-2 /lpf; Mucus Urine Few /lpf
--- NOTE | 2024-12-13 03:00 | PC.NURSE ---
ERP aware of pt's blood pressure. No new orders at this time.
--- NOTE | 2024-12-13 04:09 | ADMGEN ---
This patient, Laina Lazo, was admitted to 2nd Floor Room 226-2. Patient oriented to hospital policies and general routines including ID bracelet, bed and alarms, visiting hours, pain management, procedures, bathroom and other care routines, personal items, smoking policy, room service/diet, and visiting hours. Information on how to activate the Rapid Response Team has been discussed. Patient are encouraged to report perceived risks to care and to ask questions if they do not understand what they are told or what they should do.
[2024-12-13 05:21] LABS: Basophils Absolute Auto 0.01 K/mm3 (0.00-0.10); Basophils Percent Auto 0.2 % (0.0-1.0); Hematocrit 32.3 % (35.0-42.0); Hemoglobin 10.6 g/dL (11.7-13.8); Immature Granulocyte Absolute 0.03 K/mm3 (0.00-0.00); Immature Granulocyte Percent A 0.5 % (0.0-0.0); Lymphocytes Absolute Auto 0.87 K/mm3 (1.10-4.50); Lymphocytes Percent Auto 13.4 % (18.0-42.0); Mean Corpuscular HGB Conc 32.8 g/dL (32-36); Mean Corpuscular Hemoglobin 28.3 pg (27.0-31.0); Mean Corpuscular Volume 86.4 fL (78.0-102.0); Mean Platelet Volume 9.6 fl (9.2-11.8); Monocytes Absolute Auto 0.16 K/mm3 (0.10-0.90); Monocytes Percent Auto 2.5 % (2.0-11.0); Neutrophils Absolute Auto 5.44 K/mm3 (1.70-7.20); Neutrophils Percent Auto 83.4 % (50.0-70.0); Platelet Count Result 213 K/mm3 (150-420); Red Blood Count 3.74 M/mm3 (4.20-5.40); White Blood Count 6.5 K/mm3 (4.8-10.8)
[2024-12-13 05:37] LABS: Alanine Aminotransferase 13 U/L (14-59); Albumin Level 3.2 g/dL (3.4-5.0); Alkaline Phosphatase 90 U/L (46-116); Anion Gap 7 mmol/L (4-12); Aspartate Amino Transferase < 10 U/L (15-37); Bilirubin,Total 0.3 mg/dL (0.00-1.00); Blood Urea Nitrogen 13 mg/dL (7-18); Calcium 8.3 mg/dL (8.5-10.1); Carbon Dioxide 26 mmol/L (21-32); Chloride 92 mmol/L (98-108); Estimated Glomerular Filt Rate 48; Glucose 213 mg/dL (70-99); Osmolality Calculated 266 mOsm/kg (285-295); Potassium 3.6 mmol/L (3.5-5.1); Sodium 125 mmol/L (136-145); Total Protein 6.8 g/dL (6.4-8.2)
--- OUTSIDE RECORDS SUMMARY | 2024-12-13 07:54 | XMS_ITS | CONTINUITY OF CARE DOCUMENT ---
Author Name cat shelton Address Unknown Organization [facility] Address [id number] [place] [address] [address] [place] [address] Phone [phone] Care Team Providers Care Physician'S Aide Name Role Phone Ashish Cortes MD Unavailable [phone] MELLISSA MORENO MD Unavailable MELLISSA MORENO MD Unavailable [phone] RESULTS Date Observation Value Provider Reference [...] Payer name Policy type / Coverage type [place] red alliance party ID AARP MEDICARE ADVANTAGE ([facility] COMPLETE PPO) Other [id number]
--- OUTSIDE RECORDS SUMMARY | 2024-12-13 07:54 | XMS_ITS | Clinical Summary ---
Author Organization [facility] Address [address] [place] [address] Phone Care Team Providers Care Superintendent Pressure Name Role Phone Eugene Dorado MD Primary Care Provider [phone] Allergies Active Allergy Reactions Criticality Noted Date Comments Acetaminophen 12/08/2021 Corticosteroids 12/08/2021 Hydrocodone 12/08/2021 Lisinopril 12/08/2021 Medications amLODIPine (NORVASC) 5 MG tablet Take 10 mg by mouth 1 (one) time each day in the morning 2 Active Blood Glucose Monitoring Suppl (Blu Wireless Technologyuch Verio Flex System) w/Device kit USE TO TEST TWICE DAILY 2 Active furosemide (LASIX) 20 MG tablet Take 20 mg by mouth 1 (one) time each day in the morning 2 Active OneTouch Verio test strip USE TO TEST BLOOD SUGAR TWICE DAILY 2 Active Lancets (BlosonTouch Delica Plus [id number]) misc USE TO TEST BLOOD SUGAR TWICE [...] 2025 Insurance [employer] MEDICARE Care Teams Superintendent Pressure Relationship Specialty Start Date End Date Eugene Dorado MD [address] [place] [address] PCP - General Internal Medicine 11/11/21
--- NOTE | 2024-12-13 10:22 | P.SS_ITS ---
Same Day Admit/Disch: HPI History of Present Illness Chief complaint: DIZZINESS UTI HYPONATREMIA Narrative: Laina Lazo is a 79 year old female Who presented to the emergency department with complaints of dizziness. Patient reports she has a history of hyponatremia and feels her sodium was low. Upon evaluation patient was found to have a sodium of 123. Patient states she had been walking and noticed that her blood sugars continued to increase at which time she started drinking a lot of water to help with her blood sugar patient does report she continues more water than she is supposed to. Patient reports past medical history hypertension, diabetes, CKD 3, and hyponatremia. mother finding showed acute kidney injury on chronic close to her baseline and UA was suspicious for urinary tract infection although patient did deny any urinary complaints. CT head showed no acute findings patient was admitted to the medical unit and started on IV fluids fluid restriction and placed on Rocephin IV. patient denied any chest pain, shortness a breath, nausea, vomiting, visual changes, weakness or difficulty urinating. [facility] Past Medical History Medical History Hypertension Chronic kidney disease, stage 3b Acute kidney failure Hyponatremia Diabetes mellitus Social History Social History Smoking packs per day: 0.5 Smoking cigarettes per day: 10.0 Years smoked: 20 Smoking pack-years: 10.00 Smoking status: Never smoker Tobacco type: cigarettes Second hand tobacco smoke exposure: No Alcohol intake: never Substance use: never Substance use type: does not use Do You Feel Safe in your Home?: Yes Lack of Transportation: No Lack of Food: Never True Current Housing: I Have Housing Concerned About Future Housing: No Difficulty Paying Gas/Electric Bills: No Difficulty Paying for Meds: No Currently Unemployed: No Education: High School Diploma/GED Difficulty w/ Childcare or Family Care: No Gender identity (if verbalized by the patient): Female Sexual Orientation (if Verbalized by the Patient): Straight or Heterosexual Spiritual care concerns: No Same Day Admit/Disch: Med Pre-admit Medications Home Medications ?Medication ?Instructions ?Recorded ?Confirmed ?Type cyanocobalamin (vitamin B-12) 1,000 mcg PO DAILY 12/08/22 12/13/24 History 1,000 mcg capsule cholecalciferol (vitamin D3) 50 50 mcg PO DAILY 06/26/24 12/13/24 History mcg (2,000 unit) capsule amlodipine 5 mg tablet (Norvasc) 10 mg (2 x 5 mg) PO QHS #60 tabs 12/13/24 Rx amoxicillin 875 mg-potassium 1 tablet PO Q12H #8 tabs 12/13/24 Rx clavulanate 125 mg tablet blood sugar diagnostic (OneTouch 12/13/24 12/13/24 History Verio test strips) glimepiride 1 mg tablet 1 mg PO .COMPLEX 12/13/24 12/13/24 History sodium chloride 1,000 mg soluble 1,000 mg PO QAM #30 tabs 12/13/24 Rx tablet Review of Systems Review of Systems All systems reviewed & are unremarkable except as noted in HPI and below Exam Const: General: comfortable and no acute distress HENMT: Ears: TM's normal bilaterally Face/Nose/Sinus: Normal nares present Mouth: Yes moist mucous membranes Eyes: General: appearance normal, both eyes and all related structures Sclera: sclerae normal Pupils: Equal, round and reactive pupils present EOM: EOMs intact bilaterally Neck: Neck: supple and no JVD Resp: Effort & Inspection: normal respiratory effort Auscultation: clear to auscultation bilaterally Cardio: Rate: regular rate Rhythm: regular rhythm GI: GI Palp: Yes Soft to palpation Auscultation: normal bowel sounds : General: Yes bladder normal to palpation Skin: General skin exam: normal color and no rashes or lesions noted Wounds: no wounds Neuro: General: gait normal Speech: normal speech Motor exam (neuro): 5/5 motor strength present throughout Sensory Exam: normal sensation Extrem: General: normal to inspection Psych: Mental Status: mental status grossly normal Affect: normal affect DS: Data Data Completed and Pending Labs on day of discharge: Labs from last 24 hours 12/13/24 12/13/24 12/13/24 05:03 01:30 01:11 WBC 6.5 8.6 RBC 3.74 L 3.73 L Hgb 10.6 L 10.8 L Hct 32.3 L 32.1 L MCV 86.4 86.1 MCH 28.3 29.0 MCHC 32.8 33.6 RDW 13.0 13.1 Plt Count 213 230 MPV 9.6 9.7 Immature Gran % (Auto) 0.5 H 0.3 H Neut % (Auto) 83.4 H 82.9 H Lymph % (Auto) 13.4 L 13.6 L [place] % (Auto) 2.5 2.7 Eos % (Auto) 0.0 L 0.2 L Baso % (Auto) 0.2 0.3 Lymph # (Auto) 0.87 L 1.17 [place] # (Auto) 0.16 0.23 Eos # (Auto) 0.00 L 0.02 Baso # (Auto) 0.01 0.03 Abs Immat Gran (auto) 0.03 H 0.03 H Absolute Neuts (auto) 5.44 7.14 Absolute Nucleated RBC 0.00 0.00 Nucleated RBC % 0.0 0.0 Sodium 125 L 123 L Potassium 3.6 4.4 Chloride 92 L 90 L Carbon Dioxide 26 25 Anion Gap 7 8 BUN 13 16 Creatinine 1.10 H 1.09 H Estim Creat Clear Calc Not Reportable Not Reportable Estimated GFR 48 L 48 L Glucose 213 H 202 H Calculated Osmolality 266 L 263 L Calcium 8.3 L 9.0 Total Bilirubin 0.3 0.4 AST < 10 L 34 ALT 13 L 17 Alkaline Phosphatase 90 94 Troponin I 5.4 Total Protein 6.8 7.5 Albumin 3.2 L 3.6 Urine Color Light yellow Urine Appearance Clear Urine pH 6.0 Ur Specific [place] 1.020 Urine Protein 2+ H Urine Glucose (UA) 2+ H Urine Ketones Trace H Ur Blood (Man) Trace-intact H Urine Nitrate Negative Urine Bilirubin Negative Urine Urobilinogen 0.2 Leukocyte Esterase Rfl Trace H Urine RBC 0-2 Urine WBC 16-20 H Urine WBC Clumps Present H Ur Squamous Epith Cells Few Urine Bacteria 1+ Hyaline Casts 0-2 Urine Mucus Few H Imaging Radiologist's impression: Non-contrast Head CT History: Dizziness Technique: Axial non-contrast imaging of the brain was performed. Dose reduction technique was used on this scan by utilizing automated exposure control and iterative reconstruction technique. The dose-length product (DLP) was 605.33 mGy-cm. Findings: There is no evidence of intracranial hemorrhage, mass lesion, or acute infarct. Brain parenchyma appears normal. The ventricles and subarachnoid spaces are normal in size. The calvarium appears normal. The visualized paranasal sinuses and mastoid air cells are clear. Impression: No significant abnormality seen. DS: Summary Hospital Course Reason for hospitalization: Hyponatremia/UTI Hospital Course: Admission: Laina Lazo is a 79 year old female Who presented to the emergency department with complaints of dizziness. Patient reports she has a history of hyponatremia and feels her sodium was low. Upon evaluation patient was found to have a sodium of 123. Patient states she had been walking and noticed that her blood sugars continued to increase at which time she started drinking a lot of water to help with her blood sugar patient does report she continues more water than she is supposed to. Patient reports past medical history hypertension, diabetes, CKD 3, and hyponatremia. mother finding showed acute kidney injury on chronic close to her baseline and UA was suspicious for urinary tract infection although patient did deny any urinary complaints. CT head showed no acute findings patient was admitted to the medical unit and started on IV fluids fluid restriction and placed on Rocephin IV. patient denied any chest pain, shortness a breath, nausea, vomiting, visual changes, weakness or difficulty urinating. Hospital Course: Patient is seen following day sodium had increased to 125 patient reports she did increase her oral hydration due to her elevated blood sugar she denied any further dizziness or any visual changes had strength 5-5 was able to walk to the bathroom with no reported problems and was asymptomatic. Patient continued to deny any chest pain, shortness a breath, nausea or vomiting was urinating without difficulty. patient was adamant of discharging home reported she felt back to her baseline and she can follow-up outpatient for labs. I did place patient on a fluid restriction and told her she would need limit her fluid intake to 1800ML fluid restriction and started her on sodium chloride tablet with an order to follow-up for CMP in 1 week for further evaluation of her sodium levels. patient does have history of CKD 3 and is seeing Nephrology outpatient renal function was at baseline but did recommend close following with her glimepiride because if renal function continues to worsen this could cause issues with hypoglycemia. She was hypertensive during her admission so I increased her amlodipine to 10 mg daily from 5mg recommended she continue to monitor her BP at home and to follow up with her primary care physician for further evaluation and monitoring. patient is seen assessed prior to discharge in no acute distress ambulatory on own patient acknowledged and agreed with discharge plan Status at Discharge Functional status at discharge: independent ambulation Time Spent with Patient Time attestation: Total time spent providing and/or coordinating discharge services: DS: Admitting Diagnosis Discharge Date 12/13/2024 Admitting Diagnosis Hyponatremia/UTI DS: Discharge Diagnosis Discharge Diagnosis (1) Hyponatremia: Code(s): E87.1 - Hypo-osmolality and hyponatremia Status: Acute (2) Hypertension: Qualifiers: Hypertension type: unspecified Qualified Code(s): I10 - Essential (primary) hypertension Code(s): I10 - Essential (primary) hypertension Status: Acute (3) Diabetes mellitus: Qualifiers: Diabetes mellitus complication status: with other specified complication Diabetes mellitus termite renewal inspector insulin use: unspecified penitentiary insulin use status Diabetes mellitus type: type 2 Qualified Code(s): E11.69 - Type 2 diabetes mellitus with other specified complication Code(s): E11.9 - Type 2 diabetes mellitus without complications Status: Acute (4) Chronic kidney disease, stage 3b: Code(s): N18.32 - Chronic kidney disease, stage 3b Status: Acute (5) Acute UTI: Code(s): N39.0 - Urinary tract infection, site not specified Status: Acute Plan Disposition: Discharged to home Discharge Plan Discharge Attending physician on discharge: Tony Harley Consulting providers: Shayy Love Discharging Clinician: Shayy Love Anticipated Discharge Date/Time: 12/13/24 10:12 Patient Disposition: Home Activity: may shower and as tolerated Diet: other - see discharge instructions Discharge Instructions: Hyponatremia: * continue fluid restriction 1800ML daily * I have started you on sodium chloride tablet daily 1000mg Please take as indicated you will need a follow-up CMP which I have given an order for to re- evaluate your sodium levels * Follow-up with your primary care physician in 1 to 2 weeks * If Dizziness returns seek medical attention please rise slowly from lying or sitting position UTI: * I have prescribed Augmentin for 5 days please take as indicated High blood pressure: * I have increased your amlodipine to 10mg daily please monitor blood pressure at home How can you care for yourself at home? ? Keep track of any new symptoms or changes in your symptoms. ? Rest until you feel better. ? Be safe with medicines. Take your medicines exactly as prescribed. Call your doctor if you think you are having a problem with your medicine. ? Do not drive after taking a prescription pain medicine. ? Ensure to follow-up with primary care physician as indicated and provide updated medication list provided to you at discharge. When should you call for help? Call 911 anytime you think you may need emergency care. For example, call if: ? You passed out (lost consciousness). Call your doctor now or seek immediate medical care if: ? You have new symptoms like fever, difficulty breathing, Chest pain, vomiting, or rash. ? You have new or different pain. ? You are confused and are having trouble thinking clearly. ? Your symptoms are getting worse. Watch closely for changes in your health, and be sure to contact your doctor if: ? You do not get better as expected. Patient Instructions: Antibiotic Form, Urinary Tract Infection in Women (DC), Hyponatremia (DC), Chronic Hypertension (DC) Patient Language: Cymraes Stand Alone Forms: General Discharge Information Follow-up/Referrals: Eugene Dorado MD [Primary Care Provider] - 1 week (follow-up Sodium level ) Discharge Medications: New sodium chloride 1,000 mg Tablet,Soluble 1,000 mg PO QAM Qty: 30 0RF amoxicillin-pot clavulanate 875-125 mg tablet 1 tablet PO Q12H Qty: 8 0RF Continued (DME) OneTouch Verio test strips Strip MISCELLANEOUS glimepiride 1 mg tablet 1 mg PO .COMPLEX Rx Instructions: 1 mg orally Daily; cyanocobalamin (vitamin B-12) 1,000 mcg capsule 1,000 mcg PO DAILY cholecalciferol (vitamin D3) 50 mcg (2,000 unit) capsule 50 mcg PO DAILY Changed amlodipine [Norvasc] 5 mg tablet 10 mg PO QHS Qty: 60 0RF Other Ambulatory Orders: Comprehensive Metabolic Panel (Routine) Timeframe: 1 Week Location: Determined by Patient Ordered By: Shayy Love Date of admission: 12/13/24 03:03 Primary Care Provider: Ave,Eugene Admitting Provider: Tony Harley Attending physician on admission: Tony Harley Condition: Stable Quality VTE Prophylaxis VTE prophylaxis: pharmacologic ordered -Patient's previous records reviewed on admission -ER notes reviewed in detail on admission -discussed all findings and current treatment plan with patient/Family/POA -Consultations reviewed for recommendations -Patient's disposition for safe discharge discussed with case assistant Dictation performed by [employer] direct speech recognition software, therefore rn cardiovascular variants and typographical errors may occur. Hospitalist [facility] Advance Care Plan I have confirmed that the patient's Advanced Care Plan is present, code status is documented, or surrogate decision maker is listed in patient medical record.: Yes Medication Reconciliation I have utilized all available resources to obtain, update and review the patients current medications (includes all prescriptions, OTC, herbals, cannabis, and nutritional supplements).: Yes The patient is not eligible for med reconciliation; the patient is in a emergent medical situation where delaying treatment would jeopardize the patients health.: No Heart Failure (Exclusion) Patient has history of Heart Transplant or Left Ventricular Assistive Device?: No IF YES, STOP HERE Heart Failure (Qualifier) Patient has current or prior documentation of LVEF less than or equal to 40%, or mod/servere depressed LVSF?: No IF NO, STOP HERE
--- NOTE | 2024-12-13 14:51 | PC.NURSE ---
Pt discharged to home with self care. Discharge instructions given to pt. Pt instructed to make follow up appointment with PCP. VSS.
--- NOTE | 2024-12-14 11:15 | PC.NURSE ---
No concerns with discharge yesterday.
== END 2024-12-13 12:10 | disposition home or self-care (01) ==
LOC: CHSED 03:10 → CHS2ND 07:49
PROVIDERS: Admitting Provider Internal Medicine; Emergency Provider Emergency Medicine; PCP Internal Medicine; Visit Provider Internal Medicine
DX: E87.1 Hypo-osmolality and hyponatremia (principal); N39.0 Urinary tract infection, site not specified; R42 Dizziness and giddiness; E11.22 Type 2 diabetes mellitus with diabetic chronic kidney disease; I12.9 Hypertensive chronic kidney disease with stage 1 through stage 4 chronic kidney disease, or unspecified chronic kidney disease; N18.32 Chronic kidney disease, stage 3b; F17.210 Nicotine dependence, cigarettes, uncomplicated; Z79.84 Long term (current) use of oral hypoglycemic drugs; Z79.899 Other long term (current) drug therapy
CPT/HCPCS: 36415; 70450; 80053; 81001; 84484; 85025; 87086; 93005; 96365; 96366; 96375; 99285; G0378; J0696; J7030

== ENCOUNTER 2024-12-18 09:18 | Outpatient (CLI) | payer MEDICARE, SELFPAY ==
--- OUTSIDE RECORDS SUMMARY | 2024-12-18 09:24 | XMS_ITS | Clinical Summary ---
Author Organization [facility] Address [address] [place] [address] Phone Care Team Providers Care Order Entry Representative Name Role Phone Eugene Dorado MD Primary Care Provider [phone] Allergies Active Allergy Reactions Criticality Noted Date Comments Acetaminophen 12/08/2021 Corticosteroids 12/08/2021 Hydrocodone 12/08/2021 Lisinopril 12/08/2021 Medications amLODIPine (NORVASC) 5 MG tablet Take 10 mg by mouth 1 (one) time each day in the morning 2 Active Blood Glucose Monitoring Suppl (Hybrid Securityuch Verio Flex System) w/Device kit USE TO TEST TWICE DAILY 2 Active furosemide (LASIX) 20 MG tablet Take 20 mg by mouth 1 (one) time each day in the morning 2 Active OneTouch Verio test strip USE TO TEST BLOOD SUGAR TWICE DAILY 2 Active Lancets (LitehouseTouch Delica Plus [id number]) misc USE TO TEST BLOOD SUGAR TWICE [...] 2025 Insurance [employer] MEDICARE Care Teams Order Entry Representative Relationship Specialty Start Date End Date Eugene Dorado MD [address] [place] [address] PCP - General Internal Medicine 11/11/21
--- OUTSIDE RECORDS SUMMARY | 2024-12-18 09:24 | XMS_ITS | CONTINUITY OF CARE DOCUMENT ---
Author Name cat shelton Address Unknown Organization [facility] Address [address] [place] [address] [address] [place] [address] Phone [phone] Care Team Providers Care Part Maker Name Role Phone Ashish Cortes MD Unavailable [phone] MELLISSA MORENO MD Unavailable MELLISSA MORENO MD Unavailable [phone] RESULTS Date Observation Value Provider Reference [...] Payer name Policy type / Coverage type [place] red alliance party ID AARP MEDICARE ADVANTAGE ([facility] COMPLETE PPO) Other [id number]
[2024-12-18 11:04] LABS: Alanine Aminotransferase 17 U/L (6-35); Albumin Level 4.2 g/dL (3.5-5.1); Alkaline Phosphatase 99 U/L (38-126); Anion Gap 8 mmol/L (4-12); Aspartate Amino Transferase 28 U/L (14-36); Bilirubin,Total 0.5 mg/dL (0.2-1.3); Blood Urea Nitrogen 19 mg/dL (7-17); Calcium 9.5 mg/dL (8.4-10.2); Carbon Dioxide 25 mmol/L (22-30); Chloride 103 mmol/L (98-107); Estimated Glomerular Filt Rate 53; Glucose 145 mg/dL (65-110); Osmolality Calculated 287 mOsm/kg (285-295); Potassium 4.6 mmol/L (3.4-5.0); Sodium 136 mmol/L (137-145); Total Protein 7.2 g/dL (6.3-8.2)
== END 2024-12-18 09:19 | disposition home or self-care (01) ==
LOC: CHSLAB 09:20
PROVIDERS: PCP Internal Medicine; Visit Provider Nurse Practitioner Family
DX: E87.1 Hypo-osmolality and hyponatremia (principal)
CPT/HCPCS: 36415; 80053

== ENCOUNTER 2025-03-01 12:38 | Outpatient (CLI) | payer MEDICARE, SELFPAY ==
--- NOTE | ~2025-03-01 | MM_ITS ---
EXAMINATION: MM screening thuy BI w verna HISTORY: Screening TECHNIQUE: Craniocaudal and mediolateral oblique 3-D tomosynthesis images were obtained and synthetic 2-D images were generated. CAD analysis was submitted and interpreted. COMPARISON: Comparison to multiple prior studies sequentially, with oldest reviewed study dated 02/17. BREAST PARENCHYMAL COMPOSITION: There are scattered areas of fibroglandular density. FINDINGS: There is no evidence of suspicious mass, calcification, or architectural distortion to sug gest malignancy in either breast. IMPRESSION: 1. No mammographic evidence of malignancy. 2. Recommend routine screening mammography in one year. BI-RADS Category 1: Negative Reviewed, dictated and finalized at location B.
--- OUTSIDE RECORDS SUMMARY | 2025-03-01 12:41 | XMS_ITS | Clinical Summary ---
Author Organization [facility] Address [address] [place] [address] Phone Care Team Providers Care Director Of Purchasing Name Role Phone Eugene Dorado MD Primary Care Provider [phone] Allergies Active Allergy Reactions Criticality Noted Date Comments Acetaminophen 12/08/2021 Corticosteroids 12/08/2021 Hydrocodone 12/08/2021 Lisinopril 12/08/2021 Medications amLODIPine (NORVASC) 5 MG tablet Take 10 mg by mouth 1 (one) time each day in the morning 2 Active Blood Glucose Monitoring Suppl (Streetcaruch Verio Flex System) w/Device kit USE TO TEST TWICE DAILY 2 Active furosemide (LASIX) 20 MG tablet Take 20 mg by mouth 1 (one) time each day in the morning 2 Active OneTouch Verio test strip USE TO TEST BLOOD SUGAR TWICE DAILY 2 Active Lancets (Surgery AcademyTouch Delica Plus [id number]) misc USE TO TEST BLOOD SUGAR TWICE [...] 10:57 AM CDT Height 137.2 cm (4' 6) 06/10/2022 10:57 AM CDT Body Mass Index 22.42 06/10/2022 10:57 AM CDT Plan of Treatment Health Maintenance Due Date Last Done Comments Pneumococcal PPSV23/PCV13 65 + Years / Low and Medium Risk (1 of 2 - PCV) 1994 Influenza Vaccine (#1) 2025 Insurance [employer] MEDICARE Care Teams Director Of Purchasing Relationship Specialty Start Date End Date Eugene Dorado MD [address] [place] [address] PCP - General Internal Medicine 11/11/21
== END 2025-03-01 12:39 | disposition home or self-care (01) ==
PROVIDERS: PCP Internal Medicine; Visit Provider Internal Medicine
DX: Z12.31 Encounter for screening mammogram for malignant neoplasm of breast (principal)
CPT/HCPCS: 77063; 77067

== ENCOUNTER 2025-04-26 15:34 | Emergency (ER) | payer MEDICARE, SELFPAY ==
[2025-04-26 15:35] VITALS: BP 169/52; PULSE 72; RESP 16; TEMP 36.6; O2SAT 99
--- OUTSIDE RECORDS SUMMARY | 2025-04-26 15:35 | XMS_ITS | Clinical Summary ---
Author Organization [facility] Address [address] [place] [address] Phone Care Team Providers Care Technical Training Coordinator Name Role Phone Eugene Dorado MD Primary Care Provider [phone] Allergies Active Allergy Reactions Criticality Noted Date Comments Acetaminophen 12/08/2021 Corticosteroids 12/08/2021 Hydrocodone 12/08/2021 Lisinopril 12/08/2021 Medications amLODIPine (NORVASC) 5 MG tablet Take 10 mg by mouth 1 (one) time each day in the morning 2 Active Blood Glucose Monitoring Suppl (BigBaduch Verio Flex System) w/Device kit USE TO TEST TWICE DAILY 2 Active furosemide (LASIX) 20 MG tablet Take 20 mg by mouth 1 (one) time each day in the morning 2 Active OneTouch Verio test strip USE TO TEST BLOOD SUGAR TWICE DAILY 2 Active Lancets (Organic To GoTouch Delica Plus [id number]) misc USE TO TEST BLOOD SUGAR TWICE [...] 2025 Insurance [employer] MEDICARE Care Teams Technical Training Coordinator Relationship Specialty Start Date End Date Eugene Dorado MD [address] [place] [address] PCP - General Internal Medicine 11/11/21
--- NOTE | 2025-04-26 15:56 | ED.DIZZY ---
HPI - Dizziness General Stated Complaint: high bp/dizzy Time Seen by Provider: 04/26/25 15:35 Source: patient and family Mode of arrival: ambulatory Limitations: no limitations History of Present Illness HPI Narrative: this is an 79-year-old female with history of hypertension presents with lightheadedness sinus congestion bilateral ear pressure with nasal congestion with no fever chills no shortness of breaths blood pressure is mildly elevated elevated at 160 systolic otherwise no chest pain or shortness of breath no nausea vomiting no abdominal pain no dysuria no hematuria no flank pain no nausea vomiting. MD elicited complaint: lightheadedness Onset (ago): day(s) Related Data Home Medications ?Medication ?Instructions ?Recorded ?Confirmed ?Last Taken ?Type cyanocobalamin (vitamin B-12) 1,000 mcg PO DAILY 12/08/22 12/26/24 12/12/24 History 1,000 mcg capsule 1,000 mcg cholecalciferol (vitamin D3) 50 50 mcg PO DAILY 06/26/24 12/26/24 12/12/24 History mcg (2,000 unit) capsule 50 mcg blood sugar diagnostic (OneTouch 12/13/24 12/26/24 Unknown History Verio test strips) glimepiride 1 mg tablet 1 mg PO .COMPLEX 12/13/24 12/26/24 12/12/24 History 1 mg Allergies Allergy/AdvReac Type Severity Reaction Status Date / Time lisinopril Allergy Intermediate Difficulty Verified 12/25/24 11:10 Breathing atorvastatin Allergy leg cramps Verified 12/25/24 11:10 rosuvastatin Allergy leg cramps Verified 12/25/24 11:10 acetaminophen AdvReac Difficulty Verified 12/25/24 11:10 Breathing aspirin AdvReac Difficulty Verified 12/25/24 11:10 Breathing codeine AdvReac Difficulty Verified 12/25/24 11:10 Breathing Corticosteroids AdvReac Swelling Verified 12/25/24 11:10 (Glucocorticoids) of Lip/Tongue/Throat hydrocodone AdvReac Difficulty Verified 12/25/24 11:10 Breathing morphine AdvReac Difficulty Verified 12/25/24 11:10 Swallowing Sulfa (Sulfonamide AdvReac Difficulty Verified 12/25/24 11:10 Antibiotics) Breathing Review of Systems Review of Systems: All systems reviewed & are unremarkable except as noted in HPI and below PMFSH Past Medical History Medical History Hypertension Chronic kidney disease, stage 3b Acute kidney failure Hyponatremia Diabetes mellitus Social History Social History Smoking packs per day: 0.5 Smoking cigarettes per day: 10.0 Years smoked: 20 Smoking pack-years: 10.00 Smoking status: Never smoker Tobacco type: cigarettes Second hand tobacco smoke exposure: No Alcohol intake: never Substance use: never Substance use type: does not use Do You Feel Safe in your Home?: Yes Lack of Transportation: No Lack of Food: Never True Current Housing: I Have Housing Concerned About Future Housing: No Difficulty Paying Gas/Electric Bills: No Difficulty Paying for Meds: No Currently Unemployed: No Education: High School Diploma/GED Difficulty w/ Childcare or Family Care: No Gender identity (if verbalized by the patient): Female Sexual Orientation (if Verbalized by the Patient): Straight or Heterosexual Spiritual care concerns: No Exam Const: General: healthy appearing and no acute distress Nutritional Appearance: well nourished Orientation/consciousness: patient oriented x3 Limitations: no limitations HENMT: Head: normal to inspection Other: Frontal maxillary sinus tenderness to palpation with bilateral ear dullness and bilateral nasal turbinates inflamed and erythematous. Neck: Neck: normal visual inspection Chest: Chest palpation & inspection: normal inspection of the chest Resp: Effort & Inspection: normal respiratory effort Auscultation: clear to auscultation bilaterally Cardio: Rate: regular rate Rhythm: regular rhythm GI: GI Palp: Yes Soft to palpation Auscultation: normal bowel sounds Urinary Catheter: Urinary Catheter: patent and draining Skin: General skin exam: normal color Rashes: no rashes Neuro: General: patient oriented x3 and moves all extremities Extrem: General: normal to inspection Course Course Emergency Course: Blood pressure stable little bit on the higher side but took a dose of her amlodipine early, complaining of sinus congestion will send antibiotics to her local pharmacy for sinusitis. Vital Signs Vital signs: Vital Signs Temperature 36.6 C 04/26/25 15:35 Pulse Rate 72 04/26/25 15:35 Respiratory Rate 16 04/26/25 15:35 Blood Pressure 169/52 H 04/26/25 15:35 Pulse Oximetry 99 04/26/25 15:35 Oxygen Delivery Room Air 04/26/25 15:35 Temperature 36.6 C 04/26/25 15:35 Pulse Rate 72 04/26/25 15:35 Respiratory Rate 16 04/26/25 15:35 Blood Pressure 169/52 H 04/26/25 15:35 Pulse Oximetry 99 04/26/25 15:35 Oxygen Delivery Room Air 04/26/25 15:35 Critical Care Time Critical Care Time Critical Care Time: No Discharge Plan Discharge Clinical Impression: Hypertension Sinusitis Qualifiers: Sinusitis location: frontal Chronicity: acute Recurrence: non-recurrent Qualified Code(s): J01.10 - Acute frontal sinusitis, unspecified Patient Disposition: Home Condition: Stable Instructions: Antibiotic Form, Sinusitis (ED), Hypertension (ED) Additional Instructions: advised patient to take medication as prescribed and to follow with primary care physician within the next 3 to 5 days for further evaluation and treatment. Can take Claritin [id number] daily along with antibiotics. Patient Language: Austrian Prescriptions: New azithromycin [Zithromax Z-Adriano] 250 mg tablet See Rx Instructions .ROUTE .COMPLEX Qty: 6 0RF Rx Instructions: For 250 mg dose pack: take 500 mg today (day 1), then 250 mg for 4 days (days 2-5) No Action (DME) OneTouch Verio test strips Strip MISCELLANEOUS glimepiride 1 mg tablet 1 mg PO .COMPLEX Rx Instructions: 1 mg orally Daily; sodium chloride 1,000 mg Tablet,Soluble 1,000 mg PO QAM Qty: 30 0RF amoxicillin-pot clavulanate 875-125 mg tablet 1 tablet PO Q12H Qty: 8 0RF amlodipine [Norvasc] 5 mg tablet 10 mg PO QHS Qty: 60 0RF cyanocobalamin (vitamin B-12) 1,000 mcg capsule 1,000 mcg PO DAILY cholecalciferol (vitamin D3) 50 mcg (2,000 unit) capsule 50 mcg PO DAILY Follow-up/Referrals: Eugene Dorado MD [Primary Care Provider, Internal Medicine] Time of Disposition: 16:00
[2025-04-26 16:32] VITALS: BP 145/48; PULSE 70; RESP 16; TEMP 36.6; O2SAT 100
== END 2025-04-26 16:32 | disposition home or self-care (01) ==
LOC: CHSED 16:06
PROVIDERS: Emergency Provider Emergency Medicine; PCP Internal Medicine
DX: I12.9 Hypertensive chronic kidney disease with stage 1 through stage 4 chronic kidney disease, or unspecified chronic kidney disease (principal); E11.22 Type 2 diabetes mellitus with diabetic chronic kidney disease; N18.32 Chronic kidney disease, stage 3b; J01.10 Acute frontal sinusitis, unspecified; F17.210 Nicotine dependence, cigarettes, uncomplicated
CPT/HCPCS: 99283

== ENCOUNTER 2025-07-11 14:12 | Outpatient (CLI) | payer MEDICARE, SELFPAY ==
[2025-07-11 15:27] LABS: Anion Gap 14 mmol/L (4-12); Blood Urea Nitrogen 24 mg/dL (7-17); Calcium 9.6 mg/dL (8.4-10.2); Carbon Dioxide 22 mmol/L (22-30); Chloride 102 mmol/L (98-107); Estimated Glomerular Filt Rate 39; Glucose 112 mg/dL (65-110); Osmolality Calculated 291 mOsm/kg (285-295); Potassium 4.3 mmol/L (3.4-5.0); Sodium 138 mmol/L (137-145)
--- OUTSIDE RECORDS SUMMARY | 2025-07-11 15:29 | XMS_ITS | Clinical Summary ---
Author Organization [facility] Address [address] [place] [address] Care Team Providers Care License Distributor Name Role Phone Eugene Dorado MD Primary Care Provider Allergies Active Allergy Reactions Criticality Noted Date Comments Aspirin Hives 04/27/2025 Atorvastatin Other (see comment) 04/27/2025 Made me sick Codeine Hives 04/27/2025 Corticosteroids Other (see comment) 04/27/2025 Unsure Hydrocodone Hives 04/27/2025 Lisinopril Cough 04/27/2025 Morphine Hives 04/27/2025 Rosuvastatin Other (see comment) 04/27/2025 Made me sick Sulfa Antibiotics Hives 04/27/2025 Acetaminophen Hives 04/27/2025 Medications glimepiride (AMARYL) 1 MG tablet Take 1 tablet (1 mg total) by mouth every morning before breakfast. 12/13/2024 Active amLODIPine (NORVASC) 5 MG tablet Take 1 tablet (5 mg total) by mouth daily. 12/13/2024 Active donepezil (ARICEPT) 5 MG Tab Take 1 tablet (5 mg total) by mouth nightly at bedtime. Active Active Problems Problem Noted Date Diagnosed Date Hyponatremia 04/27/2025 Encounters Date Type Department Care Team Description 07/07/2025 7:36 PM CONTACT ASSEMBLER - 07/07/2025 10:22 PM [facility] Emergency [place] [facility] Formerly [facility], [facility] [facility] [address] [place] [address] Mimi Mckay DO Hypertension; Chest Pain Discharge Disposition: Home or Self Care (Routine Discharge) 07/07/2025 Travel 04/27/2025 2:49 AM CDT - 04/28/2025 12:08 PM CDT Hospital Encounter [facility] 4th Floor Medical [address] [place] [address] Ariadna Clarke MD Imam, Syed M, DO Discharge Disposition: Home or Self Care (Routine Discharge) 04/26/2025 10:17 PM CDT - 04/27/2025 1:45 AM CDT Emergency [facility] [place] [facility] [address] [facility] [address] [place] [address] Mimi Mckay DO Vomiting Discharge Disposition: Transfer to Acute Care Hospital 04/26/2025 Travel from Last 3 Months Social History Tobacco Use Types Packs/Day Years Used Date Smoking Tobacco: Never Smokeless Tobacco: Never Tobacco Cessation:Counseling Given: Not Answered Alcohol Use Standard Drinks/Week Comments Not Currently 0 (1 standard drink = 0.6 oz pur e alcohol) [facility] Utilities Answer Date Recorded In the past 12 months has [facility] [employer], gas, oil, or water [employer] threatened to shut off services in your home? No 04/27/2025 Humiliation, Afraid, Rape, and Kick questionnair e Answer Date Recorded Within the last year, have y ou been afraid of your partner or ex-partner? No 04/27/2025 Within the last year, have y ou been humiliated or emotionally abused in other ways by your partner or ex-partner? No Within the last year, have y ou been kicked, hit, slapped, or otherwise physically hurt by your partner or ex-partner? No 04/27/2025 Within the last year, have y ou been raped or forced to have any kind of sexual activity by your partner or ex-partner? No 04/27/2025 Overall Financial Resource Strain (CARDIA) Answe r Date Recorded How hard is it for you to pa y for the very basics like food, housing, medical care, and heating? Not hard at all 04/27/2025 Hunger Vital Sign Answer Date Recorded Within the past 12 months, y ou worried that your food would run out before you got the money to buy more. Never true 09/19/20 25 Within the past 12 months, t he food you bought just didn't last and you didn't have money to get more. Never true 04/27/2025 PRAPARE - Transportation Answer Date Re corded In the past 12 months, has l ack of transportation kept you from medical appointments or from getting medications? No 04/09 In the past 12 months, has l ack of transportation kept you from meetings, work, or from getting things needed for daily living? No 04/27/2025 Housing Stability Vital Sign Answer Aaron e Recorded In the last 12 months, was t here a time when you were not able to pay the mortgage or rent on time? No 04/27/2025 In the past 12 months, how m any times have you moved where you were living? 0 04/27/2025 At any time in the past 12 m [facility], were you homeless or living in a m[facility] (including now)? No 04/27/2025 Comments Unknown Sex and Gender Information Value Date Recorded Sex Assigned at Female 04/26/2025 10:18 PM CDT Legal Sex Female 10:03 PM CDT Gender Identity Female 04/26/2025 10:18 PM CDT Sexual Orientation Straight 04/27/2025 3: 39 AM CDT Last Filed Vital Signs Vital Sign Reading Time Taken Comments Blood Pressure 147/55 07/07/2025 10:00 PM CONTACT ASSEMBLER Pulse 69 07/07/2025 10:00 PM CONTACT ASSEMBLER Temperature 36.7 C (98 F) 07/07/2025 7:42 PM CONTACT ASSEMBLER Respiratory Rate 19 07/07/2025 10:00 PM CONTACT ASSEMBLER Oxygen Saturation 98% 07/07/2025 10:00 PM CONTACT ASSEMBLER Inhaled Oxygen Concentration - - Weight 43.7 kg (96 lb 6.4 oz) 07/07/2025 7:42 PM CONTACT ASSEMBLER Height 139.7 cm (4' 7) 07/07/2025 7:42 PM CONTACT ASSEMBLER Body Mass Index 22.41 07/07/2025 7:42 PM CONTACT ASSEMBLER Plan of Treatment Health Maintenance Due Date Last Done Comments Zoster Vaccines (1 of 2) 1994 Annual Medicare Wellness Visit 2009 Dexa Scan (General) 2009 RSV Immunization or 60+ Years (1 - 1-dose 75+ series) 2019 COVID-19 Vaccine ( season) 2025 Influenza Adult (#1) 2025 04/27/2020, 08/11/2019, 05/20/2018, Additional history exists DTaP, Tdap and Td Vaccines (2 - Td or Tdap) 06/22/2027 06/22/2017, 06/22/2017 Pneumococcal Vaccine: 50+ Years Completed 04/09/2021, 06/22/2017, 05/08/2016 Hepatitis A Vaccines Aged Out No long er eligible based on patient's age to complete this topic Meningococcal B Vaccine Aged Out No l onger eligible based on patient's age to complete this topic Meningococcal Vaccine Aged Out No gideon akua eligible based on patient's age to complete this topic RSV Immunizations Under 20 Months Aged Out No longer eligible based on patient's age to complete this topic Procedures Procedure Name Priority Date/Time Associated Diagnosis Comments TROPONIN, QUANT TIMED 07/07/2025 9:46 PM CONTACT ASSEMBLER URINALYSIS STAT 07/07/2025 9:16 PM CONTACT ASSEMBLER D-DIMER, QUANTITATIVE STAT 07/07/2025 8:13 PM CONTACT ASSEMBLER TROPONIN, QUANT STAT 07/07/2025 8:13 PM CONTACT ASSEMBLER COMPREHENSIVE METABOLIC PANEL STAT 07/07/2025 8:13 PM CONTACT ASSEMBLER HC CBC AUTO W/AUTO DIFF STAT 07/07/2025 8:13 PM CONTACT ASSEMBLER ECG 12-LEAD Routine 07/07/2025 7:38 PM CONTACT ASSEMBLER POCT GLUCOSE - DOCKED DEVICE Routine 04/28/2025 11:07 AM CDT POCT GLUCOSE - DOCKED DEVICE Routine 04/28/2025 6:20 AM CDT HC MAGNESIUM Routine 04/28/2025 6:19 AM CDT HC COMPREHENSIVE METABOL PANEL Routine 04/28/2025 6:19 AM CDT HC CBC AUTO W/AUTO DIFF Routine 04/28/2025 6:19 AM CDT HC SODIUM TIMED 04/28/2025 12:11 AM CDT POCT GLUCOSE - DOCKED DEVICE Routine 04/27/2025 9:26 PM CDT HC T4 FREE Routine 04/27/2025 6:22 PM CDT TSH W/REFLEX Routine 04/27/2025 6:22 PM CDT HC BASIC METABOLIC PANEL TIMED 04/27/2025 6:22 PM CDT US THYROID Today 04/27/2025 5:29 PM CDT POCT GLUCOSE - DOCKED DEVICE Routine 04/27/2025 4:22 PM CDT HC BASIC METABOLIC PANEL TIMED 04/27/2025 1:05 PM CDT POCT GLUCOSE - DOCKED DEVICE Routine 04/27/2025 12:24 PM CDT HC OSMOLALITY URINE Nurse Collected Priority 04/27/2025 10:50 AM CDT HC SODIUM URINE Nurse Collected Priority 04/27/2025 10:50 AM CDT HC OSMOLALITY BLOOD Routine 04/27/2025 9 :13 AM CDT HC BASIC METABOLIC PANEL TIMED 04/27/2025 9:13 AM CDT POCT GLUCOSE - DOCKED DEVICE Routine 04/27/2025 6:43 AM CDT ELECTROLYTES URINE Nurse Collected Priority 04/27/2025 4:32 AM CDT POCT GLUCOSE - DOCKED DEVICE Routine 04/27/2025 3:31 AM CDT HC SODIUM STAT 04/27/2025 1:03 AM CDT HC OSMOLALITY URINE STAT 04/27/2025 1 2:04 AM CDT HC URINALYSIS AUTO W/MICRO STAT 04/27/2025 12:[address] SOFT TISSUE NECK W CON STAT 04/26/2025 11:[address] ABD+PEL W CON STAT 04/26/2025 11:5 7 PM CDT XR CHEST PORTABLE STAT 04/26/2025 11: 57 PM CDT ECG 12-LEAD STAT 04/26/2025 10:41 PM CDT HC TROPONIN QN STAT 04/26/2025 10:32 PM CDT HC COMPREHENSIVE METABOL PANEL STAT 04/26/2025 10:32 PM CDT HC CBC AUTO W/AUTO DIFF STAT 04/26/2025 10:32 PM CDT from Last 3 Months Results * TROPONIN, QUANT (07/07/2025 9:46 PM CONTACT ASSEMBLER) Only the most recent of2 resultswithin the time period is included. TROPONIN I HIGH SENSITIVITY 9 0 - 51 ng/L 07/07/2025 10:13 PM CONTACT ASSEMBLER [facility] BLOOD VENOUS BLOOD SPECIMEN / Unknown 07/07/2025 9:46 PM CONTACT ASSEMBLER us Mimi Mckay DO LABORATORY Final Result [facility] [address] [place] [address], * (ABNORMAL) URINALYSIS (07/07/2025 9:16 PM CONTACT ASSEMBLER) COLOR (U) YELLOW 07/07/2025 9:29 PM CONTACT ASSEMBLER [facility] TRANSPARENCY CLEAR 07/07/2025 9:29 PM CONTACT ASSEMBLER [facility] SPECIFIC GRAVITY (U) 1.010 1.000 - 1.025 07/07/2025 9:29 PM CONTACT ASSEMBLER [facility] U PH 5.5 5.0 - 8.0 07/07/2025 9:29 PM CONTACT ASSEMBLER [facility] LEUKOCYTES (U) NEGATIVE NEGATIVE 07/07/2025 9:29 PM CONTACT ASSEMBLER [facility] NITRITES NEGATIVE NEGATIVE 07/07/2025 9:29 PM CONTACT ASSEMBLER [facility] PROTEIN RANDOM (U) 2+(A) NEGATIVE 07/07/2025 9:29 PM [facility] GLUCOSE (U) TRACE(A) NEGATIVE 07/07/2025 9:29 PM [facility] KETONES MG/DL (U) NEGATIVE NEGATIVE 07/07/2025 9:29 PM CONTACT ASSEMBLER [facility] UROBILINOGEN 0.2 <1.0 EU/DL 07/07/2025 9:29 PM CONTACT ASSEMBLER [facility] BILIRUBIN (U) NEGATIVE NEGATIVE 07/07/2025 9:29 PM CONTACT ASSEMBLER [facility] BLOOD (U) NEGATIVE NEGATIVE 07/07/2025 9:29 PM CONTACT ASSEMBLER [facility] WBC/HPF 0-5 0 - 5 /HPF 07/07/2025 9:29 PM CONTACT ASSEMBLER [facility] RBC/HPF 0-5 0 - 5 /HPF 07/07/2025 9:29 PM CONTACT ASSEMBLER [facility] URINE URINE SPECIMEN OBTAINED BY CLEAN CATCH PROCEDURE / Unknown 07/07/2025 9:16 PM CONTACT ASSEMBLER us Mimi Mckay DO URINE ORDERABLES Final Result [facility] [address] [place] [address], * (ABNORMAL) D-DIMER, QUANTITATIVE (07/07/2025 8:13 PM CONTACT ASSEMBLER) Pathologist [facility] D-DIMER 550(H) 0 - 500 ng{FEU}/mL 07/07/2025 8:29 PM [facility] Comment: D-Dimer values less than or equal to 500 ng/mL FEU have a negative predictive value of >95% for exclusion of deep vein thrombosis and pulmonary embolism. In patients over 50 (who tend to have higher normal baseline D-Dimer values), recent studies suggest age-adjusted D-Dimer cutoff values (calculated as: age [years] x 10 ng/mL) result in equivalent outcomes and no additional false negative findings. BLOOD VENOUS BLOOD SPECIMEN / Unknown 07/07/2025 8:13 PM CONTACT ASSEMBLER Mimi Mckay DO LABORATORY Final Result [facility] [address] [place] [address], * (ABNORMAL) COMPREHENSIVE METABOLIC PANEL (07/07/2025 8:13 PM CONTACT ASSEMBLER) [facility] SODIUM S/P/B 135(L) 136 - 145 MMOL/L 07/07/2025 8:38 PM [facility] POTASSIUM S/P/B 3.9 3.5 - 5.1 MMOL/L 07/07/2025 8:38 PM [facility] CHLORIDE S/P/B 100 98 - 107 MMOL/L 07/07/2025 8:38 PM [facility] CO2 24.9 21.0 - 32.0 MMOL/L 07/07/2025 8:38 PM [facility] GLUCOSE 206(H) 70 - 99 MG/DL 07/07/2025 8:38 PM [facility] Comment: FASTING GLUCOSE 100 TO 125 MG/DL IS CONSISTENT WITH IMPAIRED FASTING GLUCOSE. FASTING GLUCOSE >125 MG/DL IS CONSISTENT WITH DIABETES. RANDOM GLUCOSE >200 MG/DL WITH HYPERGLYCEMIC SYMPTOMS IS CONSISTENT WITH DIABETES. PER ADA GUIDELINES BUN 21 6 - 24 MG/DL 07/07/2025 8:38 PM [facility] CREATININE S/P/B 1.24(H) 0.55 - 1.02 MG/DL 07/07/2025 8:38 PM [facility] CALCIUM S/P/B 9.6 8.4 - 10.5 MG/DL 07/07/2025 8:38 PM [facility] BILIRUBIN TOTAL S/P/B 0.2 0.2 - 1.0 MG/DL 07/07/2025 8:38 PM [facility] Comment: THIS ASSAY IS NOT RECOMMENDED FOR PATIENTS UNDERGOING TREATMENT WITH ELTROMBOPAG DUE TO THE POTENTIAL FOR FALSELY ELEVATED RESULTS. ALKALINE PHOSPHATASE S/P/B 120 55 - 142 U/L 07/07/2025 8:38 PM [facility] AST 17 15 - 37 U/L 07/07/2025 8:38 PM [facility] ALT 22 14 - 59 U/L 07/07/2025 8:38 PM [facility] TOTAL PROTEIN S/P/B 8.0 6.4 - 8.2 G/DL 07/07/2025 8:38 PM [facility] ALBUMIN S/P/B 3.7 3.4 - 5.0 G/DL 07/07/2025 8:38 PM [facility] ANION GAP 10.1 5.0 - 15.0 MMOL/L 07/07/2025 8:38 PM [facility] OSMOLALITY (CALC) 289 MOSM/KG 025 8:38 PM [facility] Comment:REFERENCE RANGE NOT ESTABLISHED GFR ESTIMATE 44(L) >89 ML/MIN/1. 73 M2 07/07/2025 8:38 PM [facility] GFR NOTES GFR REFERENCE S: 07/07/2025 8:38 PM [facility] Comment: THE ESTIMATED GFR IS CALCULATED USING THE 2020 CKD-EPI EQUATION. THE FOLLOWING CATEGORIES FOR GRADING RENAL FUNCTION ARE RECOMMENDED BY THE INTERNATIONAL SOCIETY OF NEPHROLOGY (KDIGO 2012 CLINICAL PRACTICE GUIDELINE). G1,NORMAL OR HIGH: >89 ml/min/1.73 m2 G2,MILDLY DECREASED: 60-89 ml/min/1.73 m2 G3A,MILDLY TO MODERATELY DECREASED: 45-59 ml/min/1.73 m2 G3B,MODERATELY TO SEVERELY DECREASED: 30-44 ml/min/1.73 m2 G4,SEVERELY DECREASED: 15-29 ml/min/1.73 m2 G5,KIDNEY FAILURE: <15 ml/min/1.73 m2 BLOOD VENOUS BLOOD SPECIMEN / Unknown 07/07/2025 8:13 PM CONTACT ASSEMBLER Mimi Mckay DO LABORATORY Final Result [facility] [address] [place] [address], * (ABNORMAL) CBC W/DIFF AUTOMATED (07/07/2025 8:13 PM CONTACT ASSEMBLER) WBC 5.84 4.00 - 10.80 x10'3/uL 07/07/2025 8:20 PM CONTACT ASSEMBLER [facility] RBC 3.99(L) 4.10 - 5.40 x10'6/uL 07/07/2025 8:20 PM CONTACT ASSEMBLER [facility] HGB 11.6(L) 12.0 - 16.0 G/DL 07/07/2025 8:20 PM [facility] HCT 34.4(L) 36.0 - 47.0 % 07/07/2025 8:20 PM [facility] MCV 86.2 78.0 - 100.0 FL 07/07/2025 8:20 PM [facility] MCH 29.1 27.0 - 31.0 PG 07/07/2025 8:20 PM CONTACT ASSEMBLER [facility] MCHC 33.7 33.0 - 36.0 G/DL 07/07/2025 8:20 PM CONTACT ASSEMBLER [facility] RDW 13.6 11.5 - 14.5 % 07/07/2025 8:20 PM [facility] PLT 223 150 - 350 x10'3/uL 07/07/2025 8:20 PM [facility] MPV 9.9 7.4 - 10.4 FL 07/07/2025 8:20 PM CONTACT ASSEMBLER [facility] CBC COMMENT NORMAL REFERENCE RANGE NOT ESTABLISHED FOR THE PROPORTIONAL LEUKOCYTE DIFFERENTIAL. 07/07/2025 8:20 PM CONTACT ASSEMBLER [facility] NEUTROPHILS % 71.6 % 07/07/2025 8:20 PM CONTACT ASSEMBLER [facility] LYMPHOCYTES % 20.2 % 07/07/2025 8:20 PM CONTACT ASSEMBLER [facility] MONOCYTES % 6.5 % 07/07/2025 8:20 PM CONTACT ASSEMBLER [facility] EOSINOPHILS % 1.2 % 07/07/2025 8:20 PM CONTACT ASSEMBLER [facility] BASOPHILS % 0.3 % 07/07/2025 8:20 PM CONTACT ASSEMBLER [facility] IMMATURE GRANS % 0.2 % 07/07/20 8:20 PM CONTACT ASSEMBLER [facility] NRBC % 0.0 % 07/07/2025 8:20 PM [facility] ABS. NEUTROPHILS 4.18 1.60 - 8.30 x10'3/uL 07/07/2025 8:20 PM CONTACT ASSEMBLER [facility] ABS. LYMPHOCYTES 1.18 0.80 - 4.70 x10'3/uL 07/07/2025 8:20 PM CONTACT ASSEMBLER [facility] ABS. MONOCYTES 0.38 0.00 - 1.50 x10'3/uL 07/07/2025 8:20 PM CONTACT ASSEMBLER [facility] ABS. EOSINOPHILS 0.07 0.00 - 0.40 x10'3/uL 07/07/2025 8:20 PM [facility] ABS. BASOPHILS 0.02 0.00 - 0.20 x10'3/uL 07/07/2025 8:20 PM [facility] ABS. IMMATURE GRANULOCYTES 0.01 0.00 - 0.03 x10'3/uL 07/07/2025 8:20 PM [facility] ABS. NUCLEATED RBC'S 0.00 0.00 - 0.01 x10'3/uL 07/07/2025 8:20 PM [facility] BLOOD VENOUS BLOOD SPECIMEN / Unknown 07/07/2025 8:13 PM CONTACT ASSEMBLER us Mimi Mckay DO LABORATORY Final Result [facility] [address] [place] [id number], * ECG 12 lead (07/07/2025 7:38 PM CONTACT ASSEMBLER) Only the most recent of2 resultswithin the time period is included. ECG QT 341 [facility] ECG QTC 408 [facility] 07/07/2025 7:38 PM CONTACT ASSEMBLER Narrative [facility] - 07/09/2025 12:57 PM CONTACT ASSEMBLER [address] [place] [address] Test Date: 2025-07-07 Pat Name: LAINA VERA Department: 3 Room: Gender: Female Diamond Expert: : 1945 Requested By: MIMI MCKAY Order Number: [id number] Reading MD: Loree Dodson Measurements Intervals [place] Rate: 86 P: 54 HI: 204 QRS: 23 QRSD: 68 T: 43 QT: 341 QTc: 408 Interpretive Statements SINUS RHYTHM NONSPECIFIC ST & T-WAVE ABNORMALITY ACT ASSEMBLER Procedure Note Loree Dodson MD - 07/09/[address] [place] [address] Test Date: 2025-07-07 Pat Name: LAINA VERA Department: 3 Room: Gender: Female Diamond Expert: : 1945 Requested By: MIMI MCKAY Order Number: [id number] Reading : Loree Dodson Measurements Intervals [place] Rate: 86 P: 54 HI: 204 QRS: 23 QRSD: 68 T: 43 QT: 341 QTc: 408 Interpretive Statements SINUS RHYTHM NONSPECIFIC ST & T-WAVE ABNORMALITY ACT ASSEMBLER us Mimi Mckay DO ECG ORDERABLES Final Result Performing Organization Address City/[facility]/ZIP Co de Phone Number [facility] * (ABNORMAL) POCT glucose (04/28/2025 11:07 AM CDT) Only the most recent of7 resultswithin the time period is included. GLUCOSE POC 69(L) 70 - 109 04/28/2025 11:59 AM CDT [facility] 04/28/2025 11:0 7 AM CDT Vini Melgar DO POCT ORDERABLES - DEVICE Final R esult Performing Organization Address [facility] Co de Phone Number [facility] [address] [place] [address], [place] [phone] * (ABNORMAL) COMPREHENSIVE METABOLIC PANEL (04/28/2025 6:19 AM CDT) Only the most recent of2 resultswithin the time period is included. SODIUM S/P/B 140 136 - 145 MMOL/L 04/28/2025 7:22 AM CDT [facility] POTASSIUM S/P/B 4.0 3.5 - 5.1 MMOL/L 04/28/2025 7:22 AM CDT [facility] Comment:MILD HEMOLYSIS, RESU LT MAY BE AFFECTED. CHLORIDE S/P/B 110 97 - 115 MMOL/L 04/28/2025 7:22 AM CDT [facility] CO2 23.5 21.0 - 32.0 MMOL/L 04/28/2025 7:22 AM CDT [facility] GLUCOSE 103 74 - 106 MG/DL 04/28/2025 7:22 AM CDT [facility] BUN 10 7 - 18 MG/DL 04/28/2025 7:22 AM CDT [facility] CREATININE S/P/B 0.94 0.55 - 1.02 MG/DL 04/28/2025 7:22 AM [facility] CALCIUM S/P/B 8.6 8.5 - 10.1 MG/DL 04/28/2025 7:22 AM [facility] BILIRUBIN TOTAL S/P/B 0.3 0.2 - 1.0 MG/DL 04/28/2025 7:22 AM [facility] ALKALINE PHOSPHATASE S/P/B 64 55 - 142 U/L 04/28/2025 7:22 AM [facility] AST 19 15 - 37 U/L 04/28/2025 7:22 AM [facility] Comment:RESULT QUESTIONABLE DUE TO HEMOLYSIS, CONSIDER RECOLLECTION. ALT 11(L) 13 - 56 U/L 04/28/2025 7:22 AM [facility] TOTAL PROTEIN S/P/B 6.5 6.4 - 8.2 G/DL 04/28/2025 7:22 AM [facility] ALBUMIN S/P/B 2.9(L) 3.4 - 5.0 G/DL 04/28/2025 7:22 AM [facility] ANION GAP 6.5 2.0 - 10.0 MMOL/L 04/28/2025 7:22 AM [facility] OSMOLALITY (CALC) 289 MOSM/KG 025 7:22 AM [facility] Comment:REFERENCE RANGE NOT ESTABLISHED GFR ESTIMATE 61(L) >90 ML/MIN/1. 73 M2 04/28/2025 7:22 AM [facility] GFR NOTES GFR REFERENCE S: 04/28/2025 7:22 AM [facility] Comment: THE ESTIMATED GFR IS CALCULATED USING THE 2020 CKD-EPI EQUATION. THE FOLLOWING CATEGORIES FOR GRADING RENAL FUNCTION ARE RECOMMENDED BY THE INTERNATIONAL SOCIETY OF NEPHROLOGY (KDIGO 2012 CLINICAL PRACTICE GUIDELINE). G1,NORMAL OR HIGH: >89 ml/min/1.73 m2 G2,MILDLY DECREASED: 60-89 ml/min/1.73 m2 G3A,MILDLY TO MODERATELY DECREASED: 45-59 ml/min/1.73 m2 G3B,MODERATELY TO SEVERELY DECREASED: 30-44 ml/min/1.73 m2 G4,SEVERELY DECREASED: 15-29 ml/min/1.73 m2 G5,KIDNEY FAILURE: <15 ml/min/1.73 m2 04/28/2025 6:19 AM CDT us Ariadna Clarke MD LABORATORY Final Res ult [facility] [address] [place] [address], [phone] * (ABNORMAL) CBC W/DIFF AUTOMATED (04/28/2025 6:19 AM CDT) Only the most recent of2 resultswithin the time period is included. WBC 4.39 4.00 - 10.80 x10'3/uL 04/28/2025 6:41 AM CDT [facility] RBC 3.26(L) 4.10 - 5.40 x10'6/uL 04/28/2025 6:41 AM CDT [facility] HGB 9.4(L) 12.0 - 16.0 G/DL 04/28/2025 6:41 AM CDT [facility] HCT 28.5(L) 36.0 - 47.0 % 04/28/2025 6:41 AM CDT [facility] MCV 87.4 78.0 - 100.0 FL 04/28/2025 6:41 AM CDT [facility] MCH 28.8 27.0 - 31.0 PG 04/28/2025 6:41 AM CDT [facility] MCHC 33.0 33.0 - 36.0 G/DL 04/28/2025 6:41 AM CDT [facility] RDW 13.7 11.5 - 14.5 % 04/28/2025 6:41 AM CDT [facility] PLT 197 150 - 350 x10'3/uL 04/28/2025 6:41 AM CDT [facility] MPV 10.5(H) 7.4 - 10.4 FL 04/28/2025 6:41 AM CDT [facility] DIFFERENTIAL TYPE AUTOMATED DIFFERENTIAL 04/28/2025 6:41 AM CDT [facility] SEG NEUTROPHILS 49.2 % 6:41 AM CDT [facility] LYMPHOCYTES 36.2 % 04/28/2025 6:41 AM CDT [facility] MONOCYTES 9.6 % 04/28/2025 6:41 AM CDT [facility] EOSINOPHILS 4.1 % 04/28/2025 6:41 AM CDT [facility] BASOPHILS 0.7 % 04/28/2025 6:41 AM CDT [facility] IMMATURE GRANS % 0.2 % 04/28/20 6:41 AM CDT [facility] ABS. NEUTROPHILS 2.16 1.60 - 8.30 x10'3/uL 04/28/2025 6:41 AM CDT [facility] ABS. LYMPHOCYTES 1.59 0.80 - 4.70 x10'3/uL 04/28/2025 6:41 AM CDT [facility] ABS. MONOCYTES 0.42 0.00 - 1.50 x10'3/uL 04/28/2025 6:41 AM CDT [facility] ABS. EOSINOPHILS 0.18 0.00 - 0.40 x10'3/uL 04/28/2025 6:41 AM CDT [facility] ABS. BASOPHILS 0.03 0.00 - 0.20 x10'3/uL 04/28/2025 6:41 AM CDT [facility] ABS. IMMATURE GRANULOCYTES 0.01 0.00 - 0.03 x10'3/uL 04/28/2025 6:41 AM CDT [facility] ABS. NUCLEATED RBC'S 0.00 0.00 - 0.01 x10'3/uL 04/28/2025 6:41 AM CDT [facility] NRBC % 0.0 % 04/28/2025 6:41 AM CDT [facility] 04/28/2025 6:19 AM CDT Ariadna Clarke MD LABORATORY Final Res ult Performing Organization Address [facility] de Phone Number [facility] [address] [place] [address], [phone] * MAGNESIUM (04/28/2025 6:19 AM CDT) MAGNESIUM 2.0 1.6 - 2.6 MG/DL 04/28/2025 7:22 AM CDT [facility] Comment:RESULT QUESTIONABLE DUE TO HEMOLYSIS, RECOMMEND RECOLLECTION. 04/28/2025 6:19 AM CDT us Ariadna Clarke MD LABORATORY Final Res ult Performing Organization Address [facility] de Phone Number [facility] [address] [place] [address], [phone] * SODIUM, SERUM (04/28/2025 12:11 AM CDT) Only the most recent of2 resultswithin the time period is included. SODIUM S/P/B 139 136 - 145 MMOL/L 04/28/2025 12:56 AM CDT [facility] 04/28/2025 12:1 1 AM CDT Vini Melgar DO LABORATORY Final Result Performing Organization Address [facility] Co de Phone Number [facility] [address] [place] [address], [place] [phone] * (ABNORMAL) TSH W/REFLEX (04/27/2025 6:22 PM CDT) [facility] TSH 3.870(H) 0.358 - 3.740 uIU/ML 04/27/2025 7:02 PM CDT [facility] Comment: ASSAY PERFORMED BY CHEMILUMINESCENCE METHODOLOGY USING [employer]. PATIENT RESULTS DETERMINED BY ASSAYS USING DIFFERENT MANUFACTURERS FOR METHODS MAY NOT BE COMPARABLE. 04/27/2025 6:22 PM CDT Vini Melgar DO LABORATORY Final Result Performing Organization Address City/State/[facility] Co de Phone Number [facility] [address] [place] [address], [place] [phone] * (ABNORMAL) BASIC METABOLIC PANEL (04/27/2025 6:22 PM CDT) Only the most recent of3 resultswithin the time period is included. [facility] SODIUM S/P/B 136 136 - 145 MMOL/L 04/27/2025 7:02 PM CDT [facility] POTASSIUM S/P/B 3.9 3.5 - 5.1 MMOL/L 04/27/2025 7:02 PM CDT [facility] CHLORIDE S/P/B 107 97 - 115 MMOL/L 04/27/2025 7:02 PM CDT [facility] CO2 21.8 21.0 - 32.0 MMOL/L 04/27/2025 7:02 PM CDT [facility] GLUCOSE 153(H) 74 - 106 MG/DL 04/27/2025 7:02 PM CDT [facility] BUN 10 7 - 18 MG/DL 04/27/2025 7:02 PM CDT [facility] CREATININE S/P/B 1.13(H) 0.55 - 1.02 MG/DL 04/27/2025 7:02 PM CDT [facility] CALCIUM S/P/B 8.6 8.5 - 10.1 MG/DL 04/27/2025 7:02 PM CDT [facility] ANION GAP 7.2 2.0 - 10.0 MMOL/L 04/27/2025 7:02 PM CDT [facility] OSMOLALITY (CALC) 284 MOSM/KG 025 7:02 PM CDT [facility] Comment:REFERENCE RANGE NOT ESTABLISHED GFR ESTIMATE 49(L) >90 ML/MIN/1. 73 M2 04/27/2025 7:02 PM CDT [facility] GFR NOTES GFR REFERENCE S: 04/27/2025 7:02 PM CDT [facility] Comment: THE ESTIMATED GFR IS CALCULATED USING THE 2020 CKD-EPI EQUATION. THE FOLLOWING CATEGORIES FOR GRADING RENAL FUNCTION ARE RECOMMENDED BY THE INTERNATIONAL SOCIETY OF NEPHROLOGY (KDIGO 2012 CLINICAL PRACTICE GUIDELINE). G1,NORMAL OR HIGH: >89 ml/min/1.73 m2 G2,MILDLY DECREASED: 60-89 ml/min/1.73 m2 G3A,MILDLY TO MODERATELY DECREASED: 45-59 ml/min/1.73 m2 G3B,MODERATELY TO SEVERELY DECREASED: 30-44 ml/min/1.73 m2 G4,SEVERELY DECREASED: 15-29 ml/min/1.73 m2 G5,KIDNEY FAILURE: <15 ml/min/1.73 m2 04/27/2025 6:22 PM CDT Ariadna Clarke MD LABORATORY Final Res ult [facility] [address] [place] [address], [id number] * THYROXINE, FREE (FT4) (04/27/2025 6:22 PM CDT) FREE T4 1.00 0.76 - 1.46 NG/DL 04/28/2025 1:15 PM CDT [facility] 04/27/2025 6:22 PM CDT Ariadna Clarke MD LABORATORY Final Res ult [facility] [address] [place] [address], [place] [phone] [id number] * US THYROID (04/27/2025 5:29 PM CDT) Anatomical Region Laterality Modality Neck Ultrasound 04/28/2025 7:59 AM CDT Impressions 04/28/2025 8:04 AM CDT IMPRESSION: TIRADS assessment of thyroid nodules: Nodule 1, right: ACR TI-RADS TR3. Size: 0.4 cm. Recommend: No further follow-up Nodule 2, right: ACR TI-RADS TR1. Size: 0.4 cm. Recommend: No further follow-up Nodule 3, left mid to inferior: ACR TI-RADS TR3. Size: 3.0 cm. Recommend: Ultrasound-guided fine needle aspiration Nodule 4, left superior: ACR TI-RADS TR4. Size: 1.0 cm. Recommend: Follow-up ultrasound in 1 year Other non-TIRADS findings: None ----- -- ACR TI-RADS recommendations TR5 (7 points) - FNA if 1cm, follow-up annually if 0.5 cm TR4 (4-6 points) - FNA if 1.5 cm, follow-up at 1, 2, 3, and 5 years if 1.0 cm TR3 (3 points)- FNA if 2.5cm, follow-up at 1, 3, and 5 years if 1.5 cm TR2 (2 points) & TR1 (0 points) - No FNA or follow-up * ACR TI-RADS recommends that no more than two nodules with the highest ACR TI- RADS total point should be biopsied and no more than four nodules should be followed. TI-RADS recommendations are based on TI-RADS level. Management decisions such as whether to perform FNA and whether to follow up a nodule may differ from the TI- RADS recommendation based on clinician judgement, patient preference, risk factors for thyroid cancer, comorbidities, life expectancy and other considerations. Referred By: MIMI MCKAY Interpreted By: Ozzy Saavedra MD, 04/28/2025 7:59 AM Narrative 04/28/2025 8:04 AM CDT [address] [address] Thyroid Ultrasound Indication: Thyroid nodule. Comparison: No prior thyroid ultrasounds available for comparison. CT soft tissue neck 04/26/2025. Technique: Douglass-scale and color Doppler images of the thyroid gland were obtained. Findings: RIGHT LOBE: The right thyroid lobe is homogenous in background echotexture. The right lobe measures 3.2 x 1.0 x 1.1 cm. Number of nodules which are TI-RADS scored for the right lobe: 2 LEFT LOBE: The left thyroid lobe is homogenous in background echotexture. The left lobe measures 4.4 x 2.0 x 3.0 cm. Number of nodules which are TI-RADS scored for the left lobe: 2 ISTHMUS: The isthmus measures 0.2 cm in thickness. Number of nodules which are TI-RADS scored for the isthmus: 0 Lymph nodes: No suspicious cervical adenopathy. Nodule 1: - Size: 0.4 x 0.4 x 0.4 cm - Location: right mid lateral thyroid. - Composition: mixed cystic and solid (1) - Echogenicity: hypoechoic (2) - Shape: grrpl-qnej-clrf (0) - Margins: - Echogenic foci: none (0) ACR TI-RADS total points: 3 ACR TI-RADS category: TR3 Nodule 2: - Size: 0.4 x 0.3 x 0.3 cm - Location: right mid to inferior thyroid. - Composition: cystic or almost completely cystic (0) - Echogenicity: anechoic (0) - Shape: kyepd-kkmj-hgmi (0) - Margins: smooth (0) - Echogenic foci: none (0) ACR TI-RADS total points: 0 ACR TI-RADS category: TR1 Nodule 3: - Size: 2.8 x 1.9 x 3.0 cm - Location: left mid to inferior thyroid. - Composition: solid or almost completely solid (2) with small cystic component - Echogenicity: isoechoic (1) - Shape: xsfqf-gysj-uade (0) - Margins: smooth (0) - Echogenic foci: none (0) ACR TI-RADS total points: 3 ACR TI-RADS category: TR3 Nodule 4: - Size: 0.9 x 0.6 x 1.0 cm - Location: left upper to mid thyroid. - Composition: solid or almost completely solid (2) - Echogenicity: hypoechoic (2) - Shape: ruenw-tbyv-hoim (0) - Margins: smooth (0) - Echogenic foci: none (0) ACR TI-RADS total points: 4 ACR TI-RADS category: TR4 Procedure Note Ozzy Saavedra MD - 04/28/[address] [address] Thyroid Ultrasound Indication: Thyroid nodule. Comparison: No prior thyroid ultrasounds available for comparison. CTsoft tissue neck 04/26/2025. Technique: Douglass-scale and color Doppler images of the thyroid gland wereobtained. Findings: RIGHT LOBE: The right thyroid lobe is homogenous in background echotexture. The rightlobe measures 3.2 x 1.0 x 1.1 cm. Number of nodules which are TI-RADSscored for the right lobe: 2 LEFT LOBE: The left thyroid lobe is homogenous in background echotexture. The leftlobe measures 4.4 x 2.0 x 3.0 cm. Number of nodules which are TI-RADSscored for the left lobe: 2 ISTHMUS: The isthmus measures 0.2 cm in thickness. Number of nodules which areTI-RADS scored for the isthmus: 0 Lymph nodes: No suspicious cervical adenopathy. Nodule 1: - Size: 0.4 x 0.4 x 0.4 cm - Location: right mid lateral thyroid. - Composition: mixed cystic and solid (1) - Echogenicity: hypoechoic (2) - Shape: fatsr-asps-dvpq (0) - Margins: - Echogenic foci: none (0) ACR TI-RADS total points: 3 ACR TI-RADS category: TR3 Nodule 2: - Size: 0.4 x 0.3 x 0.3 cm - Location: right mid to inferior thyroid. - Composition: cystic or almost completely cystic (0) - Echogenicity: anechoic (0) - Shape: sdhgt-dksd-hcun (0) - Margins: smooth (0) - Echogenic foci: none (0) ACR TI-RADS total points: 0 ACR TI-RADS category: TR1 Nodule 3: - Size: 2.8 x 1.9 x 3.0 cm - Location: left mid to inferior thyroid. - Composition: solid or almost completely solid (2) with small cysticcomponent - Echogenicity: isoechoic (1) - Shape: ohmbw-xpat-jodb (0) - Margins: smooth (0) - Echogenic foci: none (0) ACR TI-RADS total points: 3 ACR TI-RADS category: TR3 Nodule 4: - Size: 0.9 x 0.6 x 1.0 cm - Location: left upper to mid thyroid. - Composition: solid or almost completely solid (2) - Echogenicity: hypoechoic (2) - Shape: nczfz-wvxl-wbko (0) - Margins: smooth (0) - Echogenic foci: none (0) ACR TI-RADS total points: 4 ACR TI-RADS category: TR4 IMPRESSION: TIRADS assessment of thyroid nodules: Nodule 1, right: ACR TI-RADS TR3. Size: 0.4 cm. Recommend: No furtherfollow-up Nodule 2, right: ACR TI-RADS TR1. Size: 0.4 cm. Recommend: No furtherfollow-up Nodule 3, left mid to inferior: ACR TI-RADS TR3. Size: 3.0 cm.Recommend: Ultrasound-guided fine needle aspiration Nodule 4, left superior: ACR TI-RADS TR4. Size: 1.0 cm. Recommend:Follow-up ultrasound in 1 year Other non-TIRADS findings: None ----- -- ACR TI-RADS recommendations TR5 (7 points) - FNA if 1cm, follow-up annually if 0.5 cm TR4 (4-6 points) - FNA if 1.5 cm, follow-up at 1, 2, 3, and 5 years if1.0 cm TR3 (3 points)- FNA if 2.5cm, follow-up at 1, 3, and 5 years if 1.5 cm TR2 (2 points) & TR1 (0 points) - No FNA or follow-up * ACR TI-RADS recommends that no more than two nodules with the highestACR TI- RADS total point should be biopsied and no more than four nodulesshould be followed. TI-RADS recommendations are based on TI-RADS level. Managementdecisions such as whether to perform FNA and whether to follow up a nodulemay differ from the TI- RADS recommendation based on clinician judgement,patient preference, risk factors for thyroid cancer, comorbidities, lifeexpectancy and other considerations. Referred By: MIMI MCKAY Interpreted By: Ozzy Saavedra MD, 04/28/2025 7:59 AM us Vini M Imam DO ULTRASOUND Final Result * SODIUM URINE RANDOM (04/27/2025 10:50 AM CDT) NA RANDOM (U) 30 MMOL/L 04/27/2025 9:29 PM CDT [facility] Comment:REFERENCE RANGE NOT ESTABLISHED URINE SPECIMEN / Unknown 04/27/2025 10:50 AM CDT us Vini M Imam DO URINE ORDERABLES Final Result [facility] [address] [place] [address], [place] [phone] * OSMOLALITY, URINE (04/27/2025 10:50 AM CDT) Only the most recent of2 resultswithin the time period is included. OSMOLALITY (U) 168 50 - 1,200 MOSM/KG 04/27/2025 12:13 PM CDT [facility] URINE SPECIMEN / Unknown 04/27/2025 10:50 AM CDT us Vini M Imam DO URINE ORDERABLES Final Result Performing Organization Address [facility]/ZIP Co de Phone Number [facility] [address] [place] [address], [phone] * OSMOLALITY, BLOOD (04/27/2025 9:13 AM CDT) OSMOLALITY (S/P/B) 288 275 - 295 MOSM/KG 04/27/2025 10:31 AM CDT [facility] 04/27/2025 9:13 AM CDT us Vini M Imam DO LABORATORY Final Result Performing Organization Address City/[facility]/ZIP Co de Phone Number [facility] [address] [place] [address], [place] [phone] * ELECTROLYTES URINE (04/27/2025 4:32 AM CDT) NA RANDOM (U) 30 MMOL/L 04/27/2025 5:06 AM CDT [facility] Comment:REFERENCE RANGE NOT ESTABLISHED K RANDOM (U) 3.0 MMOL/L 04/27/2025 5:06 AM CDT [facility] Comment:REFERENCE RANGE NOT ESTABLISHED CHLORIDE RANDOM (U) 20 MMOL/L 04/27/2025 5:06 AM CDT [facility] Comment:REFERENCE RANGE NOT ESTABLISHED URINE SPECIMEN / Unknown 04/27/2025 4:32 AM CDT Ariadna Clarke MD URINE ORDERABLES Final Re sult [facility] [address] [place] [address], [id number] * (ABNORMAL) URINALYSIS (04/27/2025 12:04 AM CDT) COLOR (U) STRAW 04/27/2025 12:26 AM CDT [facility] TRANSPARENCY CLEAR 04/27/2025 12:26 AM CDT [facility] SPECIFIC GRAVITY (U) 1.005 1.000 - 1.025 04/27/2025 12:26 AM CDT [facility] Comment:LESS THAN OR EQUAL T O U PH 6.0 5.0 - 8.0 04/27/2025 12:26 AM CDT [facility] LEUKOCYTES (U) 2+(A) NEGATIVE 04/27/2025 12:26 AM CDT [facility] NITRITES NEGATIVE NEGATIVE 04/27/2025 12:26 AM CDT [facility] PROTEIN RANDOM (U) 2+(A) NEGATIVE 04/27/2025 12:26 AM CDT [facility] GLUCOSE (U) TRACE(A) NEGATIVE 04/27/2025 12:26 AM CDT [facility] KETONES MG/DL (U) NEGATIVE NEGATIVE 04/27/2025 12:26 AM CDT [facility] UROBILINOGEN 0.2 <1.0 EU/DL 04/27/2025 12:26 AM CDT [facility] BILIRUBIN (U) NEGATIVE NEGATIVE 04/27/2025 12:26 AM CDT [facility] BLOOD (U) TRACE(A) NEGATIVE 04/27/2025 12:26 AM CDT [facility] WBC/HPF 10-20(A) 0 - 5 /HPF 04/27/2025 12:26 AM CDT [facility] RBC/HPF 0-5 0 - 5 /HPF 04/27/2025 12:26 AM CDT [facility] EPI/LPF OCCASIONAL /LPF 04/27/2025 12:26 AM CDT [facility] BACTERIA (U) 2+ /HPF 04/27/2025 12:26 AM CDT [facility] URINE SPECIMEN OBTAINED BY CLEAN CATCH PROCEDURE / Unknown 04/27/2025 12:04 AM CDT us Mimi Kathleen [place] URINE ORDERABLES Final Result [facility] [address] [place] [address], * CT SOFT TISSUE NECK W CON (04/26/2025 11:58 PM CDT) Anatomical Region Laterality Modality Neck Computed Tomogra phy 04/27/2025 12:0 4 AM CDT Impressions 04/27/2025 12:16 AM CDT IMPRESSION: 1. Heterogeneously enhancing 2.5 x 2.8 x 2.4 cm nodular lesion in the left lobe of thyroid with an adjacent tiny hypodense lesion in the superior left lobe of thyroid. The lesion has a slightly exophytic mass effect on the left lateral wall of the trachea and minimal displacement trachea to the right. Recommend thyroid ultrasound. May consider ultrasound guided fine-needle aspirate biopsy of the dominant lesion in left lobe. 2. No other suspicious mass lesion or pathologic adenopathy in the neck. 3. Narrowing of the glottic airway is likely related to Valsalva during imaging. 4. 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 Levoscoliosis of the cervical spine. Referred By: Interpreted By: Paulina Ordonez MD, 04/27/2025 12:04 AM Narrative 04/27/2025 12:16 AM CDT [facility] [address] [place] [address] EXAMINATION: CT Neck with intravenous contrast,, Axial Imaging with 2-D Coronal and Sagittal Reconstructions. 100 mL Isovue-370 was administered intravenously. This CT exam was performed using one or more of the following dose reduction techniques: automated exposure control, adjustment of the mA and/or kV according to patient size, the use of iterative reconstruction technique, use of ALARA (As Low As Reasonably Achievable) and/or use of Image Gently techniques. INDICATION: History of Daniel, ate dinner, cannot swallow, pain to pharynx, no lesions on exam, no trauma COMPARISON: None. FINDINGS: There is heterogeneously enhancing approximately 2.5 x 2.8 x 2.4 cm nodular lesion in the left lobe of thyroid nearly replacing the left lobe of thyroid. This may cause slight extrinsic mass effect on the left lateral wall of the trachea and minimal displacement trachea to the right. There is an adjacent small hypodense lesion in the superior left lobe of thyroid. Tiny hypodense lesion is also seen in the right lower thyroid with the right lobe otherwise unremarkable. No other suspicious mass lesion or areas of abnormal enhancement are identified. No pathologic adenopathy in the neck. Narrowing of the glottic airway is likely related to Valsalva during imaging. Soft tissues of the pharynx and larynx are otherwise unremarkable. The airway is patent and symmetric. The parotid and submandibular glands are unremarkable. The thyroid gland is normal. , Prominent rotatory curvature of cervical spine to the left and mild curvature of the upper thoracic spine to the right. Chronic spondylotic degenerative changes in the cervical spine. Multilevel facet arthropathy and disc osteophyte complexes in the cervical spine with multilevel foraminal narrowing. No acute osseous abnormality. Postoperative changes of bilateral lens replacement surgery are noted in the orbits. No significant paranasal sinus or mastoid air cell disease. Procedure Note Paulina Ordonez MD - 04/27/2025 [facility] [address] [facility] [place] [address] EXAMINATION: CT Neck with intravenous contrast,, Axial Imaging with 2-DCoronal and Sagittal Reconstructions. 100 mL Isovue-370 was administeredintravenously. This CT exam was performed using one or more of the following dosereduction techniques: automated exposure control, adjustment of the mAand/or kV according to patient size, the use of iterative reconstructiontechnique, use of ALARA (As Low As Reasonably Achievable) and/or use ofImage Gently techniques. INDICATION: History of Daniel, ate dinner, cannot swallow, pain topharynx, no lesions on exam, no trauma COMPARISON: None. FINDINGS: There is heterogeneously enhancing approximately 2.5 x 2.8 x 2.4cm nodular lesion in the left lobe of thyroid nearly replacing the leftlobe of thyroid. This may cause slight extrinsic mass effect on the leftlateral wall of the trachea and minimal displacement trachea to the right.There is an adjacent small hypodense lesion in the superior left lobe ofthyroid. Tiny hypodense lesion is also seen in the right lower thyroidwith the right lobe otherwise unremarkable. No other suspicious masslesion or areas of abnormal enhancement are identified. No pathologicadenopathy in the neck. Narrowing of the glottic airway is likely relatedto Valsalva during imaging. Soft tissues of the pharynx and larynx areotherwise unremarkable. The airway is patent and symmetric. The parotidand submandibular glands are unremarkable. The thyroid gland is normal. ,Prominent rotatory curvature of cervical spine to the left and mildcurvature of the upper thoracic spine to the right. Chronic spondyloticdegenerative changes in the cervical spine. Multilevel facet arthropathyand disc osteophyte complexes in the cervical spine with multilevelforaminal narrowing. No acute osseous abnormality. Postoperative changesof bilateral lens replacement surgery are noted in the orbits. Nosignificant paranasal sinus or mastoid air cell disease. IMPRESSION: 1. Heterogeneously enhancing 2.5 x 2.8 x 2.4 cm nodular lesion in theleft lobe of thyroid with an adjacent tiny hypodense lesion in thesuperior left lobe of thyroid. The lesion has a slightly exophytic masseffect on the left lateral wall of the trachea and minimal displacementtrachea to the right. Recommend thyroid ultrasound. May considerultrasound guided fine-needle aspirate biopsy of the dominant lesion inleft lobe. 2. No other suspicious mass lesion or pathologic adenopathy in theneck. 3. Narrowing of the glottic airway is likely related to Valsalva duringimaging. 4. Chronic spondylotic degenerative changes in the cervical spine withmultilevel foraminal narrowing. Levoscoliosis of the cervical spine. Referred By: Interpreted By: Paulina Ordonez MD, 04/27/2025 12:04 AM us Slaughter Kathleen CT Final Result * CT ABD+PEL W IV CON ONLY (04/26/2025 11:57 PM CDT) Anatomical Region Laterality Modality Abdomen Computed Tomogra phy 04/27/2025 12:0 3 AM CDT Impressions 04/27/2025 12:10 AM CDT IMPRESSION: 1. No acute findings in the abdomen or pelvis. 2. Moderate sized hiatal hernia. 3. Additional findings as above. Referred By: Interpreted By: Braydon Spear MD, 04/27/2025 12:03 AM Narrative 04/27/2025 12:10 AM CDT [address] [place] [address] EXAMINATION: CT Abdomen and Pelvis with contrast EXAM DATE/TIME: 04/26/2025 11:57 PM REASON FOR EXAM: 79 years of age, Female, with eructation, history of Daniel discomfort, no trauma COMPARISON: No existing relevant imaging study available. TECHNIQUE: Axial CT images of the abdomen and pelvis are obtained following uneventful intravenous administration of 100 cc Isovue-370. Subsequent coronal and sagittal reformatted sequences are created for evaluation. A dose lowering technique was used for this procedure, which may include, but is not limited to, dose reduction technique, automated exposure control, iterative reconstruction, ALARA (As Low As Reasonably Achievable), or Image Gently techniques. FINDINGS: Lower chest: No mass or airspace consolidation is seen in the visualized lung bases. No pleural effusion is seen. Borderline cardiomegaly. Moderate sized hiatal hernia. Liver/biliary: The liver is steatotic, and smooth in surface contour. Small simple hepatic cyst. Gallbladder is surgically absent. No biliary dilatation is seen. Pancreas/adrenals/spleen: Unremarkable. Genitourinary: No hydronephrosis is seen. No renal mass lesion is seen. Simple bilateral renal cysts for which no further follow-up is recommended. The urinary bladder is within normal limits. The uterus is not seen. Bowel: No bowel obstruction or inflammatory change is seen in the visualized aspects. The appendix is visualized without evidence of appendicitis. Peritoneum: No free fluid is seen. No free air is seen. Lymph nodes: No lymphadenopathy is seen. Musculoskeletal: No acute fracture or suspicious osseous lesion is seen. Procedure Note Braydon Spear MD - 04/27/2025 [facility] [address] [facility] [place] [address] EXAMINATION: CT Abdomen and Pelvis with contrast EXAM DATE/TIME: 04/26/2025 11:57 PM REASON FOR EXAM: 79 years of age, Female, with eructation, history ofNissen discomfort, no trauma COMPARISON: No existing relevant imaging study available. TECHNIQUE: Axial CT images of the abdomen and pelvis are obtainedfollowing uneventful intravenous administration of 100 cc Isovue-370.Subsequent coronal and sagittal reformatted sequences are created forevaluation. A dose lowering technique was used for this procedure, whichmay include, but is not limited to, dose reduction technique, automatedexposure control, iterative reconstruction, ALARA (As Low As ReasonablyAchievable), or Image Gently techniques. FINDINGS: Lower chest: No mass or airspace consolidation is seen in the visualizedlung bases. No pleural effusion is seen. Borderline cardiomegaly.Moderate sized hiatal hernia. Liver/biliary: The liver is steatotic, and smooth in surface contour.Small simple hepatic cyst. Gallbladder is surgically absent. No biliarydilatation is seen. Pancreas/adrenals/spleen: Unremarkable. Genitourinary: No hydronephrosis is seen. No renal mass lesion is seen.Simple bilateral renal cysts for which no further follow-up isrecommended. The urinary bladder is within normal limits. The uterus isnot seen. Bowel: No bowel obstruction or inflammatory change is seen in thevisualized aspects. The appendix is visualized without evidence ofappendicitis. Peritoneum: No free fluid is seen. No free air is seen. Lymph nodes: No lymphadenopathy is seen. Musculoskeletal: No acute fracture or suspicious osseous lesion is seen. IMPRESSION: 1. No acute findings in the abdomen or pelvis. 2. Moderate sized hiatal hernia. 3. Additional findings as above. Referred By: Interpreted By: Braydon Spear MD, 04/27/2025 12:03 AM Mimi Mckay DO CT Final Result * XR CHEST PORTABLE (04/26/2025 11:57 PM CDT) Anatomical Region Laterality Modality Chest Radiographic Nilda ging 04/27/2025 12:0 2 AM CDT Impressions 04/27/2025 12:03 AM CDT IMPRESSION: 1. No acute cardiopulmonary findings. 2. Borderline cardiomegaly. 3. Moderate sized hiatal hernia. Referred By: Interpreted By: Braydon Spear MD, 04/27/2025 12:02 AM Narrative 04/27/2025 12:03 AM CDT [address] [place] [id number] Examination: Chest x-ray 1 view Exam Date/Time: 04/26/2025 11:57 PM REASON FOR EXAM: 79 years-old Female with Chest pain Comparison: No existing relevant imaging study available. Technique: Single AP view of the chest was obtained. Findings: Heart size is borderline enlarged. Moderate hiatal hernia. Lungs are clear. There is no pleural effusion or pneumothorax. No acute osseous lesions are seen. Procedure Note Braydon Spear MD - 04/27/[address] [place] [address] Examination: Chest x-ray 1 view Exam Date/Time: 04/26/2025 11:57 PM REASON FOR EXAM: 79 years-old Female with Chest pain Comparison: No existing relevant imaging study available. Technique: Single AP view of the chest was obtained. Findings: Heart size is borderline enlarged. Moderate hiatal hernia. Lungs are clear. There is no pleural effusion or pneumothorax. No acute osseous lesions are seen. IMPRESSION: 1. No acute cardiopulmonary findings. 2. Borderline cardiomegaly. 3. Moderate sized hiatal hernia. Referred By: Interpreted By: Braydon Spear MD, 04/27/2025 12:02 AM Mimi Mckay DO GENERAL IMAGING Final Result * TROPONIN, QUANT (04/26/2025 10:32 PM CDT) TROPONIN I HIGH SENSITIVITY 9 0 - 51 ng/L 04/26/2025 11:24 PM CDT [facility] 04/26/2025 10:3 2 PM CDT Mimi Mckay DO LABORATORY Final Result [facility] [address] [place] [address], from Last 3 Months Insurance [facility] MEDIC[facility] Advance Directives * Full Code (Latest Code Status on File) Date Activated Date Inactivated Comments 04/27/2025 3:11 AM 04/28/2025 2:13 PM Care Teams License Distributor Relationship Specialty Start Date End Date Eugene Dorado MD [address] [place] [id number] PCP - General INTERNAL MEDICINE 04/26/25
== END 2025-07-11 14:13 | disposition home or self-care (01) ==
LOC: CHSLAB 14:14
PROVIDERS: PCP Internal Medicine; Visit Provider Internal Medicine Nephrology
DX: N18.31 Chronic kidney disease, stage 3a (principal)
CPT/HCPCS: 36415; 80048